=== PATIENT | male | born 1955 | race Caucasian/White ===

== ENCOUNTER → 2023-10-31 | Outpatient (REF) | payer OTHER, SELFPAY | LOC: DHSLP | PROVIDERS: ATTENDING PHYSICIAN Internal Medicine | DX: G47.33 Obstructive sleep apnea (adult) (pediatric) (principal) | CPT/HCPCS: 95800 ==

== ENCOUNTER 2023-11-25 19:58 | Inpatient (IN) | payer OTHER, SELFPAY ==
[2023-11-25] VITALS (10 sets, daily range): BP systolic 128–169; BP diastolic 71–97; BMI 32.9; BMI 31.6
--- NOTE | 2023-11-25 09:54 | ED.GENMED ---
History of Present Illness
General
Chief Complaint: Fever
Source: patient
Exam Limitations: none
Time Seen by Provider: 11/25/23 09:38
Nursing documentation reviewed up to this point in time: agreed with
Travel History
Have you had any contact with someone who has COVID-19?: No
Do you have any symptoms of coronavirus? Fever > 100 degrees, chills, cough, shortness of breath, sore throat, loss of taste or smell, muscle aches, or headache?: No
History of Present Illness
History of Present Illness:
68-year-old male presents emergency room complaining of right hip pain and fever 102.9. He complains of numbness and pain in his right upper and lower leg. He had a fever 102.9 last night.
Past History
Past History
ED Past Medical History: HTN and Hypercholesterolemia
ED Past Surgical History: Orthopedic (Disc fusion), Urological (TURP, lithotripsy) and Other (mohs, umbilical hernia repair, right cataract)
Social History
Tobacco: Non-smoker
Alcohol: None
Drug: None
Personal:
Living: with family
Review of Systems
Review of Systems
Allergies reviewed?: Yes
All Other Systems: Not applicable
Constitutional: Reports fever
EENT: Reports no symptoms
Respiratory: Reports no symptoms
Cardiac: Reports no symptoms
ABD/GI: Reports no symptoms
: Reports no symptoms
Musculoskeletal: Reports joint pain
Skin: Reports no symptoms
Neurological: Reports no symptoms
Endocrine: Reports no symptoms
Hematologic/Lymphatic: Reports no symptoms
Psychiatric: Reports no symptoms
Phy Exam
Physical Exam
Physical Exam:
Physical Exam
General: no apparent distress, not acutely ill
Neck: supple. no meningeal signs. normal posterior pharynx
Heart: s1/s2 regular rate and rhythm, no murmur. equal radial
pulses.
HEENT: Pupils equal round reactive to light, EOMI
Lungs: no acute respiratory distress. clear bilaterally
Abdomen: normal bowel sounds. not tender. no CVAT
Neuro: alert and oriented. no focal neurological deficits cranial nerves II through XII intact
Skin: no rash
Psychiatric: well kept. interactive and cooperative
Extremities: no edema. no calf tenderness. negative homans. good distal pulses
Course
Orders/Labs/Results
Orders:
Orders
11/25/23 09:52
Hip, Right 2-3 Views [CR Hip - RT w/wo Pel 2-3 Vw*] Urgent
Comment:
Reason For Exam: right hip pain
Include a pelvis x-ray?: Yes
11/25/23 09:53
IV Insert/Care/Rem.- Treatment PRN
11/25/23 10:14
COVID-19 Antigen Urgent
Source: Nasal Swab
Complete Blood Count/With Diff Urgent
Comprehensive Metabolic Panel Urgent
Influenza A+B Rapid Molecular Urgent
[facility] Source: Nasal Swab
Specimen Description:
11/25/23 10:48
Urinalysis Reflex To Culture Urgent
Date Specimen was Collected: 11/25/23
Time Specimen was Collected: 10:47
Urine Microscopic Reflex Cult Urgent
11/25/23 10:55
Lactic Acid Q4H
Comment: CANCEL 2nd LACTIC ACID IF 1st LACTIC ACID IS LESS THAN 2
Blood Culture Q30M
[facility] Source: Blood/Venous
Specimen Description:
11/25/23 11:06
Blood Culture Q30M
[facility] Source: Blood/Venous
Specimen Description:
11/25/23 12:21
US Abdomen Complete/Upper Urgent
Comment:
Reason For Exam: fever, transaminitis
11/25/23 16:08
GASTROINTESTINAL CONSULT Routine
Consulting Provider: Alice Corcoran
Was physician already notified: Yes
Reason for consult: Fever, transaminitis, gallstones, cholecystitis
11/25/23 16:59
CefTRIAXone [Rocephin] 2,000 mg IV NOW STA
MetroNIDAZOLE 500 MG/100 ML [Flagyl 500 mg] 100 ml IV NOW
Abnormal Lab Results
11/25/23 11/25/23
10:14 10:48
WBC 2.6 L 10^3/uL
(4.8-10.8)
RBC 4.50 L 10^6/uL
(4.70-6.10)
Hgb 12.7 L g/dL
(13.0-18.0)
Hct 35.9 L %
(39.0-52.0)
MCV 79.8 L fL
(80.0-94.0)
Absolute Lymphs (auto) 0.2 L 10^3/uL
(1.2-3.4)
Lymphocytes % 9.4 L %
(20.5-51.1)
Monocytes % 11.7 H %
(1.7-9.3)
Sodium 132 L mmol/L
(135-145)
BUN 21 H mg/dl
(9-20)
Glucose 129 H mg/dl
(70-99)
Total Bilirubin 2.0 H mg/dl
(0.2-1.3)
AST 421 H U/L
(17-59)
ALT 351 H U/L
(0-50)
Alkaline Phosphatase 207 H U/L
(38-126)
Ur Occult Blood Reflex Trace A
(Negative)
Urine Bilirubin 1+ A
(Negative)
Urine Urobilinogen 2+ A
(Neg - 1+)
Leukocyte Esterase Rfl Trace A
(Negative)
Urine Bacteria (Reflex) Few A
(Negative)
11/25/23 10:14
11/25/23 10:14
Vital Signs
Initial and Last Documented VS:
Initial Vital Signs
Temp Pulse Resp BP Pulse Ox
98.7 F 67 20 141/80 98
11/25/23 08:59 11/25/23 08:59 11/25/23 08:59 11/25/23 08:59 11/25/23 08:59
Last Documented Vital Signs
Temp Pulse Resp BP Pulse Ox
99.0 F 57 18 128/71 94
11/25/23 15:59 11/25/23 14:55 11/25/23 14:55 11/25/23 14:55 11/25/23 14:55
MDM/Problems Addressed
Differential Diagnosis Includes:
sepsis
MDM/Problems Addressed:
68 yo male with fever, transaminitis, gallstones.
Chronic conditions affecting care: HTN
Acute Exacerbation and/or Progression of Chronic Illness: HTN
*Radiology
Radiology exam reviewed: radiology read reviewed (hip xray nad, US gallstones)
*Pulse Oximetry
Patient hypoxic: no
*EKG
Interpreted by ED Provider?: NA
*Medical Van Driver Interpretation
Rate: Medical Van Driver- N/A
*Critical Care Note
Total Time (30-74mins, 75-104mins- exclusive of procedures): Not Applicable
Patient Management
Social determinants of health affecting care: Living situation
Discussion with other providers: Hospitalist
Escalation/DeEscalation of care consider admission/obs:
admit indicated
ED Attending Note
-
Portions of this chart may have been created with voice recognition software.� Occasional wrong word or��sound alike� substitutions may have occurred due to the inherent limitations of voice recognition software.
Discharge Plan
Departure
Patient Disposition: Admit
Date of Disposition: 11/25/23
Time of Disposition: 15:40
Admit to: Telemetry
Presentation/result/management discussed w/ accepting MD/DO: Hospitalist
Patient with high blood pressure during this ER visit?: Yes
Condition: Good
Discharge Problem:
Fever, Transaminitis, Gallstones
Prescriptions:
No Action
metformin 500 mg Tablet
1,000 mg PO BID
atorvastatin 20 mg Tablet
20 mg PO DAILY
hydralazine 25 mg Tablet
25 mg PO TID
amlodipine 10 mg Tablet
10 mg PO DAILY
gabapentin 100 mg Capsule
100 mg PO TID PRN (Reason: nerve pain)
losartan 100 mg Tablet
100 mg PO DAILY
naproxen 500 mg Tablet
500 mg PO BID PRN (Reason: pain)
eplerenone 50 mg Tablet
50 mg PO BID
tadalafil [Cialis] 10 mg Tablet
10 mg PO DAILY PRN (Reason: ED)
Referrals:
Khushi Christensen MD [Family Provider] -
Interventions
Interventions:
*Risk Screen - Suicide Last Done: 11/25/23 08:59
*General Assessment Last Done: 11/25/23 08:59
*Neglect/Abuse Screening Last Done: 11/25/23 08:59
ED- Neurological Assessment Last Done: 11/25/23 10:10
ED-Skin Assessment Last Done: 11/25/23 10:10
Discharge Date and Time
Print Language: INDONESIAN
[2023-11-25 10:27] LABS: % Basophils 0.8 % (0-2); % Immature Granulocytes 0.4 % (0-0.5); Mean Platelet Volume 9.7 fL (7.4-10.4); Nucleated Red Blood Cells % 0 % (-)
[2023-11-25 10:29] LABS: % Eosinophils 3.5 % (0-6); % Lymphocytes 9.4 % (20.5-51.1); % Monocytes 11.7 % (1.7-9.3); % Neutrophils 74.2 % (42.2-75.2); Absolute Eosinophils 0.1 10^3/uL (0-0.7); Absolute Lymphocytes 0.2 10^3/uL (1.2-3.4); Absolute Monocytes 0.3 10^3/uL (0.1-0.6); Absolute Neutrophils 1.9 10^3/uL (1.4-6.5); Hematocrit 35.9 % (39.0-52.0); Hemoglobin 12.7 g/dL (13.0-18.0); Mean Corp Hgb Conc. 35.4 g/dL (33.0-37.0); Mean Corpuscular Hgb 28.2 pg (27.0-31.0); Mean Corpuscular Volume 79.8 fL (80.0-94.0); Platelet Count 243 10^3/uL (130-400); Red Cell Dist. Width 13.7 % (11.5-14.5); White Blood Cell Count 2.6 10^3/uL (4.8-10.8)
[2023-11-25 10:35] LABS: ALT (SGPT) 351 U/L (0-50); AST (SGOT) 421 U/L (17-59); Albumin 3.8 g/dl (3.5-5.0); Alkaline Phosphatase 207 U/L (38-126); Blood Urea Nitrogen 21 mg/dl (9-20); Calcium 9.3 mg/dl (8.4-10.2); Carbon Dioxide 25 mmol/L (22-30); Chloride 102 mmol/L (98-107); Estimated Creatinine Clearance 79 ml/min; Glucose 129 mg/dl (70-99); Potassium 3.8 mmol/L (3.5-5.1); Sodium 132 mmol/L (135-145); Total Protein 6.5 g/dl (6.3-8.2); eGFR > 60.00
[2023-11-25 10:36] LABS: COVID-19 Antigen Negative (Negative)
[2023-11-25 11:40] LABS: Urine Albumin Trace (Neg - Trace); Urine Bilirubin 1+ (Negative); Urine Character Clear (Clear); Urine Color Yellow; Urine Glucose Negative (Negative); Urine Ketone Negative (Negative); Urine Leukocyte Trace (Negative); Urine Nitrite Negative (Negative); Urine Occult Blood Trace (Negative); Urine Urobilinogen 2+ (Neg - 1+)
[2023-11-25 11:52] LABS: Urine Bacteria Few (Negative); Urine Red Blood Cell 0-2 /HPF (0-2); Urine White Cell 0-2 /HPF (0-5)
[2023-11-25] MEDS: ROCEPHIN 2000 MG IV (17:16)
[2023-11-25] MEDS: FLAGYL 500 MG 100 IV ×2 (17:30→23:16)
--- NOTE | 2023-11-25 19:23 | EDRN ---
Report received, patient asking about when he is being admitted, was told they were working on orders, checked back into it and a message was sent back to hospitalist to check on this, informed patient and apologized for the delay, as im telling
patient, hospitalist comes in to admit patient.
--- NOTE | 2023-11-25 19:48 | EDRN ---
Patient provided with ice chips and warm blanket, aware we are waiting on orders to go in for his admission, no complaints at this time, went home for the evening.
--- NOTE | 2023-11-25 19:50 | HPS.HSE ---
Family Physician
-
Family Physician: Khushi Christensen
Chief Complaint
-
Fever
History of Present Illness
68 y/o male with past medical history of hypertension, hyperlipidemia, pre-DM, left ventricular hypertrophy, BPH, glaucoma, radiculopathy, spinal stenosis, squamous cell skin carcinoma, actinic keratoses, iron deficiency anemia, nephrolithiasis and
obstructive sleep apnea presented after experiencing fever of 102.9 F last night at home. Patient denied any abdominal symptoms, nausea or vomiting or diarrhea. He reports right leg pain and right hip pain, reported that he has had spinal stenosis
for years, reports that it is nerve pain for which he takes Gabapentin.
Medical History
Past Medical History
Past Medical History: Reports Other (As per HPI above)
Past Surgical History: Reports Orthopedic (Disc fusion) and Urological (TURP, lithotripsy)
Additional Past Surgical History:
mohs, umbilical hernia repair, right cataract
Social History
Tobacco: Non-smoker
Alcohol: Occasional
Drug: None
Family History
Family History: Cancer and Hypertension
Allergies / Home Medications
Allergies reflects when Allergies were last updated in Triage.
Home Medications with original date entered in Triage
Allergy/Medication List:
Allergies
Allergy/AdvReac Type Severity Reaction Status Date / Time
Penicillins Allergy Unknown Verified 11/25/23 10:07
Home Medications
amlodipine 10 mg tablet 10 mg PO DAILY 11/25/23
atorvastatin 20 mg tablet 20 mg PO DAILY 11/25/23
eplerenone 50 mg tablet 50 mg PO BID 11/25/23
gabapentin 100 mg capsule 100 mg PO TID PRN nerve pain 11/25/23
hydralazine 25 mg tablet 25 mg PO TID 11/25/23
losartan 100 mg tablet 100 mg PO DAILY 11/25/23
metformin 500 mg tablet 1,000 mg PO BID 11/25/23
naproxen 500 mg tablet 500 mg PO BID PRN pain 11/25/23
tadalafil 10 mg tablet (Cialis) 10 mg PO DAILY PRN ED 11/25/23
Review of Systems
-
A 12 point ROS was completed and negative except as noted: Yes
Physical Exam
Vital Signs
Vital Signs
Temp Pulse Resp BP Pulse Ox
98.9 F 62 17 148/76 95
11/25/23 17:13 11/25/23 18:00 11/25/23 18:00 11/25/23 18:00 11/25/23 18:00
Physical Exam
General: No Apparent Distress
HEENT: NormoCephalic and Moist mucous membranes
Respiratory: Clear
Cardiac: S1/S2 and Regular Rhythm
GI: Soft, Non Tender and Normal Bowel Sounds
Musculoskeletal: No Cyanosis and No Edema
Skin: Warm and Dry
Neuro: Awake, Alert, AO x 3, No Motor Deficits and Nonfocal/grossly intact
Psych: Calm and Intact Judgment/Insight
Laboratory Results
-
11/25/23 10:14
11/25/23 10:14
Laboratory Results
Lactic Acid Cancelled 11/25/23 15:00
Total Bilirubin 2.0 mg/dl (0.2-1.3) H 11/25/23 10:14
AST 421 U/L (17-59) H 11/25/23 10:14
ALT 351 U/L (0-50) H 11/25/23 10:14
Alkaline Phosphatase 207 U/L (38-126) H 11/25/23 10:14
Impression/Plan
-
Assessment/Plan
Fever
Suspected Acute Cholecystitis
Gallbladder Wall Thickening
Large Gallstone
Transaminitis - elevated AST and ALT
Elevated Total Bilirubin
-Patient had fever at home, but no abdominal pain
-Continue antibiotics with Rocephin and Flagyl
-Follow blood cultures
-Abdominal ultrasound results noted
-NPO except meds and sips of clears/ice chips
-Gastroenterology consulted, recommendations appreciated
Right Hip Pain and Right Lower Extremity Pain
Radiculopathy
Spinal stenosis
-RLE appears neurovascularly intact
-Continue home Gabapentin
-Patient is supposed to get a MRI of his spine outpatient soon
Hypertension
History of Left Ventricular Hypertrophy
-Continue home Amlodipine
-Continue home Eplerenone
Hyperlipidemia
-Continue home Atorvastatin
Pre-Diabetes Mellitus
-Continue home Metformin -- however watch renal function and discontinue if worsening renal function
Benign Prostatic Hyperplasia
-Monitor for any signs or symptoms
History of glaucoma
History of squamous cell skin carcinoma, actinic keratoses
History of Iron deficiency anemia
History of nephrolithiasis
History of obstructive sleep apnea
DVT Prophylaxis: Lovenox
Code Status: Full Code
[2023-11-25] MEDS: GLUCOPHAGE 1000 MG PO (21:16)
[2023-11-25] MEDS: LOVENOX 40 MG SC (21:17)
[2023-11-25] MEDS: INSPRA 50 MG PO (21:17)
[2023-11-25] MEDS: NSS 1000 IV (21:17)
[2023-11-25] MEDS: APRESOLINE 25 MG PO (21:18)
[2023-11-25] MEDS: NEURONTIN 100 MG PO (21:24)
--- NOTE | 2023-11-25 21:30 | PTCARENOTE ---
Pt transferred from ED. Pt AAOX3, able to make needs known, VSS. Pt oriented to unit, call walker within reach. Will continue with current plan.
[2023-11-25 22:32] LABS: Lipase 200 U/L (23-300)
[2023-11-25] MEDS: MELATONIN 5 MG PO (23:40)
[2023-11-26 03:20] VITALS: BP 119/83
[2023-11-26 07:00] VITALS: BP 167/84
[2023-11-26 07:05] LABS: ALT (SGPT) 353 U/L (0-50); AST (SGOT) 307 U/L (17-59); Albumin 3.6 g/dl (3.5-5.0); Alkaline Phosphatase 279 U/L (38-126); Blood Urea Nitrogen 17 mg/dl (9-20); Calcium 9.3 mg/dl (8.4-10.2); Carbon Dioxide 22 mmol/L (22-30); Chloride 102 mmol/L (98-107); Estimated Creatinine Clearance 97 ml/min; Glucose 93 mg/dl (70-99); Magnesium 1.9 mg/dl (1.6-2.3); Potassium 4.1 mmol/L (3.5-5.1); Sodium 133 mmol/L (135-145); Total Bilirubin 2.5 mg/dl (0.2-1.3); Total Protein 6.2 g/dl (6.3-8.2); eGFR > 60.00
[2023-11-26 07:14] LABS: % Basophils 0.6 % (0-2); % Eosinophils 4.1 % (0-6); % Immature Granulocytes 0.2 % (0-0.5); % Lymphocytes 7.3 % (20.5-51.1); % Monocytes 9.6 % (1.7-9.3); % Neutrophils 78.2 % (42.2-75.2); Absolute Eosinophils 0.2 10^3/uL (0-0.7); Absolute Lymphocytes 0.4 10^3/uL (1.2-3.4); Absolute Monocytes 0.5 10^3/uL (0.1-0.6); Absolute Neutrophils 3.8 10^3/uL (1.4-6.5); Hematocrit 34.3 % (39.0-52.0); Hemoglobin 12.1 g/dL (13.0-18.0); Mean Corp Hgb Conc. 35.3 g/dL (33.0-37.0); Mean Corpuscular Hgb 28.5 pg (27.0-31.0); Mean Corpuscular Volume 80.9 fL (80.0-94.0); Mean Platelet Volume 10.8 fL (7.4-10.4); Nucleated Red Blood Cells % 0 % (-); Platelet Count 227 10^3/uL (130-400); Red Blood Cell Count 4.24 10^6/uL (4.70-6.10); Red Cell Dist. Width 13.8 % (11.5-14.5); White Blood Cell Count 4.9 10^3/uL (4.8-10.8)
[2023-11-26] MEDS: INSPRA 50 MG PO ×2 (08:25→19:59)
[2023-11-26] MEDS: LIPITOR 20 MG PO (08:25)
[2023-11-26] MEDS: COZAAR 100 MG PO (08:26)
[2023-11-26] MEDS: FLAGYL 500 MG 100 IV ×3 (08:26→23:00)
[2023-11-26] MEDS: APRESOLINE 25 MG PO ×3 (08:26→22:59)
[2023-11-26] MEDS: NORVASC 10 MG PO (08:26)
[2023-11-26] MEDS: NEURONTIN 100 MG PO ×3 (08:31→23:00)
[2023-11-26] MEDS: NAPROSYN 500 MG PO (09:38)
[2023-11-26] MEDS: GLUCOPHAGE PO (09:45)
--- NOTE | 2023-11-26 10:46 | CM ---
IA completed.
[facility] with 5-6 steps to enter.
Patient admits to some difficulty with staeps due to hip pain.
Patient has been getting outpatient therapy for hip pain.
Patient drives and works.
Patient independent prior ot admission without assistive devices.
PCP: Dr Christensen (regina VAUGHAN)
Pharmacy:[facility]
Plan: home no needs anticipated.
[2023-11-26 11:00] VITALS: BP 122/79
--- NOTE | 2023-11-26 11:02 | CON.GS ---
Consultation
-
Date/Time Consultation Requested: 11/26/23 0944
Requesting Provider: Katty
Performing Provider: Katey Goode
Reason for Consultation: Gallstones, cholecystitis -- needs lap leonardo
Medical History
-
Chief Complaint: fever
History of Present Illness:
Mr Arvizu is a 68 yo pre-diabetic male with a history of CYRUS, nephrolithiasis, and TURP who presented through the ER yesterday morning as he had a fever the prior evening of 102.9 with rigors and chills. He denies associated symptoms including SOB,
abdominal pain, nausea or vomiting, diarrhea or voiding changes. He has been afebrile since presentation. Abdominal exam is benign with no tenderness, rebound, guarding or distention. He does note some mild abdominal soreness recently to the mid
right abdomen after doing core exercises with his PT but is currently non-tender on exam.
Past Medical History
Past Medical History: Cancer (skin on scalp--squamous cell), NIDDM (prediabetic on metformin) and Other (CYRUS, Nephrolithiasis, bph, iron deficiency anemia, glaucoma)
Past Surgical History: Hernia Repair (umbilical), Orthopedic (cervical disc fusion: residual right hand weakness), Urological (TURP 2015, Lithotripsy, hyrocele) and Other (Mohs, colonoscopy 2021- polyps, cataract surgery)
Social History
Tobacco: Non-Smoker
Alcohol: Occasional
Family History
Family History: Reviewed & Not Pertinent
Allergies / Home Medications
Allergy/AdvReac Type Severity Reaction Status Date / Time
Penicillins Allergy Unknown Verified 11/25/23 10:07
�Medication �Instructions �Recorded �Confirmed �Type
amlodipine 10 mg tablet 10 mg PO DAILY 11/25/23 11/25/23 History
atorvastatin 20 mg tablet 20 mg PO DAILY 11/25/23 11/25/23 History
eplerenone 50 mg tablet 50 mg PO BID 11/25/23 11/25/23 History
gabapentin 100 mg capsule 100 mg PO TID PRN nerve pain 11/25/23 11/25/23 History
hydralazine 25 mg tablet 25 mg PO TID 11/25/23 11/25/23 History
losartan 100 mg tablet 100 mg PO DAILY 11/25/23 11/25/23 History
metformin 500 mg tablet 1,000 mg PO BID 11/25/23 11/25/23 History
naproxen 500 mg tablet 500 mg PO BID PRN pain 11/25/23 11/25/23 History
tadalafil 10 mg tablet (Cialis) 10 mg PO DAILY PRN ED 11/25/23 11/25/23 History
Review of Systems
-
History Source: Patient
All other systems: Negative unless noted
A 10 point review of systems was completed, and was negative except as per HPI.
Physical Exam
Vital Signs
Temp Pulse Resp BP Pulse Ox
98.3 F 73 18 167/84 94
11/26/23 07:00 11/26/23 07:00 11/26/23 07:00 11/26/23 07:00 11/26/23 08:00
11/25/23 11/26/23 11/27/23
06:59 06:59 06:59
Actual Weight 94.12 kg
Body Mass Index (BMI) 31.6
Lab Results
11/26/23 05:34
11/26/23 05:34
WBC 4.9 10^3/uL (4.8-10.8) 11/26/23 05:34
Hgb 12.1 g/dL (13.0-18.0) L 11/26/23 05:34
Hct 34.3 % (39.0-52.0) L 11/26/23 05:34
Plt Count 227 10^3/uL (130-400) 11/26/23 05:34
Abs Immat Gran (auto) 0.0 10^3/uL (0-0.05) 11/26/23 05:34
Neutrophils % 78.2 % (42.2-75.2) H 11/26/23 05:34
Physical Exam
General: Well Developed, Well Nourished and No Apparent Distress
HEENT: Moist Mucous Membranes
Respiratory: Non Labored Respirations
GI: Soft, Non Tender and Non Distended
Skin: Warm and Dry; Negative Jaundice
Neuro: Awake, Alert and AO x 3
Psych: Calm
Data Reviewed
-
Ultrasound: Image Personally Visualized and interpreted, Report Reviewed by me, Discussed with Physician and Discussed with Patient
Labs: Labs Reviewed by me, Discussed with Physician and Discussed with Patient
Old Records: Reviewed
Assessment / Plan
-
68 yo pre-diabetic male presenting with fever of 102.9 at home with rigors/chills without other associated symptoms. Infectious work up with noted large gallstone and ?cholecystitis although he has no associated abdominal pain. LFT's elevated and
rising. Lipase WNL. Mild leukopenia on admission, now normalized. UA with +bili. Flu neg. Blood cx with NGTD. No further fevers since presentation but has been on abx with rocephin/flagyl. GI following with us as well with hepatitis panels pending.
MRCP pending as well as this may represent a cholangitis picture.
--NPO for testing
--Further surgical recommendations pending MRCP findings. Tentatively plan lap leonardo tomorrow if no choledocholithiasis present. If there are stones in the duct, would likely need ERCP prior to OR.
--- NOTE | 2023-11-26 11:20 | CON.GI ---
Consultation
-
Date/Time Consultation Requested: 11/26/2023
Date/Time Consultation Performed: 11/26/2023
Requesting Provider: Dr. Toledo
Performing Provider: Dr. Corcoran
Reason for Consultation: Elevated LFTs
Medical History
Chief Complaint / HPI
Chief Complaint: Fever/chills
History of Present Illness:
68-year-old male with history of hypertension, high cholesterol, prediabetes presenting with complaints of fevers and chills starting Monday night, out of the blue. He has been having right hip pain for 10 days and previous history of spinal
stenosis with nerve pains. His fever was up to 102.9 with chills and he came to the emergency room. In the ER, he was noted to have elevated LFTs including total bilirubin of 2.0, AST of 421, ALT of 351 and alkaline phosphatase of 207. Abdominal
ultrasound showed 2.2 cm gallstone with mild wall thickening, CBD was not visualized.
Patient denies any abdominal pain and never had episodes of abdominal pain in the last several months. No nausea or vomiting. No heartburn except occasionally for which she takes Tums as needed. No trouble swallowing. Bowel pattern is formed
stool almost on a daily basis. No pushing or straining. Takes Metamucil to regulate bowels. No blood in the stool or black stool. He did lose about 10 pounds in the last 2 months, he was started on metformin about a month ago. Colonoscopy in
[address] Handy, 2 small tubular adenomas removed from the ascending colon and transverse colon, colonoscopy in 2017, ascending colon tubular adenoma removed. No family history of colon cancer or polyps.
Reviewing labs through PCPs office in August 2023, AST of 26, ALT of 25, bilirubin of 0.4 and alkaline phosphatase of 94.
Takes naproxen for hip pain. No history of jaundice, hepatitis, herbal supplements or previous
Elevated LFTs.
Past Medical History
Past Medical History: HTN, Hypercholesterolemia and Other (Prediabetes)
Past Surgical History: Appendectomy and Other (TURP, hydrocele repair, vasectomy, C5-7 fusion)
Social History
Tobacco: Non-Smoker
Alcohol: Occasional
Family History
Family History: Reviewed & Not Pertinent
Allergies / Home Medications
Allergy/AdvReac Type Severity Reaction Status Date / Time
Penicillins Allergy Unknown Verified 11/25/23 10:07
�Medication �Instructions �Recorded
amlodipine 10 mg tablet 10 mg PO DAILY 11/25/23
atorvastatin 20 mg tablet 20 mg PO DAILY 11/25/23
eplerenone 50 mg tablet 50 mg PO BID 11/25/23
gabapentin 100 mg capsule 100 mg PO TID PRN nerve pain 11/25/23
hydralazine 25 mg tablet 25 mg PO TID 11/25/23
losartan 100 mg tablet 100 mg PO DAILY 11/25/23
metformin 500 mg tablet 1,000 mg PO BID 11/25/23
naproxen 500 mg tablet 500 mg PO BID PRN pain 11/25/23
tadalafil 10 mg tablet (Cialis) 10 mg PO DAILY PRN ED 11/25/23
Review of Systems
-
Musculoskeletal: Reports Other (Right hip pain)
Vital Signs
Temp Pulse Resp BP Pulse Ox
98.3 F 73 18 167/84 94
11/26/23 07:00 11/26/23 07:00 11/26/23 07:00 11/26/23 07:00 11/26/23 08:00
Physical Exam
Exam
General: Well Developed and Well Nourished
HEENT: Normocephalic
Respiratory: Clear
Cardiac: S1/S2 and Regular Rhythm
GI: Soft, Non Tender, Non Distended and Normal Bowel Sounds
Neuro: AO x 3
Results
WBC 4.9 10^3/uL (4.8-10.8) 11/26/23 05:34
Hgb 12.1 g/dL (13.0-18.0) L 11/26/23 05:34
Hct 34.3 % (39.0-52.0) L 11/26/23 05:34
MCV 80.9 fL (80.0-94.0) 11/26/23 05:34
Plt Count 227 10^3/uL (130-400) 11/26/23 05:34
Absolute Neuts (auto) 3.8 10^3/uL (1.4-6.5) 11/26/23 05:34
Sodium 133 mmol/L (135-145) L 11/26/23 05:34
Potassium 4.1 mmol/L (3.5-5.1) 11/26/23 05:34
Chloride 102 mmol/L (98-107) 11/26/23 05:34
Carbon Dioxide 22 mmol/L (22-30) 11/26/23 05:34
BUN 17 mg/dl (9-20) 11/26/23 05:34
Creatinine 0.8 mg/dL (0.7-1.3) 11/26/23 05:34
Calcium 9.3 mg/dl (8.4-10.2) 11/26/23 05:34
Total Bilirubin 2.5 mg/dl (0.2-1.3) H 11/26/23 05:34
AST 307 U/L (17-59) H 11/26/23 05:34
ALT 353 U/L (0-50) H 11/26/23 05:34
Alkaline Phosphatase 279 U/L (38-126) H 11/26/23 05:34
Lipase 200 U/L (23-300) 11/25/23 21:03
Diagnostic Image Results:
Prior GI Procedures:
EGD:
Colonoscopy: 2021 colonoscopy with 2 small tubular adenomas removed, repeat suggested in 5 years
Assessment / Plan
-
68-year-old male with history of hypertension, high cholesterol, prediabetes presenting with complaints of fevers and chills Aleksander night, right hip pain in the last 10 days, in the ER noted to have significant elevation in LFTs, ultrasound showing
large gallstone and mild wall thickening, common duct could not be visualized. No abdominal pain.
-Elevated LFTs,? Cholestatic pattern
No abdominal pain, fevers and chills resolved
Ultrasound showing large gallstone, CBD not visualized
Will check direct bilirubin
Will check MRCP to rule out choledocholithiasis.
Patient currently on ceftriaxone for antibiotic coverage.
Surgical evaluation pending
Will follow-up on the MRCP
Will also check hepatitis B/C serologies. No recent new medication or herbal medication.
-Hemoglobin trended down slightly, will monitor
Discussed with patient's PCP .
-
-
Thank you for consultation and allowing me to participate in the patient's care. Please call the [facility] physician during the after hours with any questions or concerns.
[2023-11-26 11:42] LABS: Direct Bilirubin 1.6 mg/dl (0.0-0.4)
[2023-11-26] MEDS: ROCEPHIN 2000 MG IV (13:05)
[2023-11-26] MEDS: STERILE WATER FOR INJECTION 20 ML IV (13:05)
[2023-11-26] MEDS: PROTONIX IV 40 MG IV (14:57)
[2023-11-26] MEDS: NSS (PRESERVATIVE FREE) 10 ML IV (14:57)
--- NOTE | 2023-11-26 15:17 | W.PN.HOSP.TC ---
Today's Communication/Plan
-
Low residue diet tonight but NPO after midnight
EGD for tomorrow AM
Assessment / Plan
Assessment / Plan
Physical Exam
General: No Apparent Distress
HEENT: Normocephalic and Moist mucous membranes
Respiratory: Clear to Auscultation Bilaterally
Cardiac: S1/S2 and Regular Rhythm
GI: Soft, Non Tender and Normal Bowel Sounds
Musculoskeletal: No Cyanosis and No Edema
Skin: Warm and Dry
Neuro: Awake, Alert, AAO x 3, No Motor Deficits and Nonfocal/grossly intact
Psych: Calm and Intact Judgment/Insight

MRCP Results, as per radiologist's report:
'IMPRESSION:
1. Moderate edema and inflammation around the 1st and 2nd portions the duodenum with associated mild to moderate duodenal wall thickening. Diagnostic possibilities are (1) acute peptic ulcer disease or (2) other causes of inflammatory or
infectious duodenitis.
2. No evidence for choledocholithiasis or biliary obstruction.
3. 1.6 cm gallstone.
4. Mild hepatosplenomegaly.'

Assessment/Plan
Fever
Suspected Acute Cholecystitis
Gallbladder Wall Thickening
Large Gallstone
Transaminitis - elevated AST and ALT
Elevated Total Bilirubin
Duodenal edema and inflammation with duodenal wall thickening
Hepatosplenomegaly
-Patient had fever at home, but no abdominal pain
-Continue antibiotics with Rocephin and Flagyl
-Follow blood cultures
-Abdominal ultrasound results noted
-Okay for low residue diet this evening, but NPO after midnight for EGD tomorrow based on MRCP findings above
-Gastroenterology consulted, recommendations appreciated
-Surgery consulted, recommendations appreciated
Right Hip Pain and Right Lower Extremity Pain
Radiculopathy
Spinal stenosis
-RLE appears neurovascularly intact
-Continue home Gabapentin
-Patient is supposed to get a MRI of his spine outpatient soon
Hypertension
History of Left Ventricular Hypertrophy
-Continue home Amlodipine
-Continue home Eplerenone
Hyperlipidemia
-Continue home Atorvastatin
Pre-Diabetes Mellitus
-Continue home Metformin -- however watch renal function and discontinue if worsening renal function
Benign Prostatic Hyperplasia
-Monitor for any signs or symptoms
History of glaucoma
History of squamous cell skin carcinoma, actinic keratoses
History of Iron deficiency anemia
History of nephrolithiasis
History of obstructive sleep apnea
DVT Prophylaxis: Lovenox
Code Status: Full Code
Anticipated Discharge: 24 - 48 hours
Subjective/Interval History
-
Date of Service: November 26, 2023
Patient was seen and examined. No fever observed overnight. He denied any new significant symptoms or complaints.
Objective Data
-
Labs:
Laboratory Results
11/26/23
05:34
WBC 4.9
Hgb 12.1 L
Hct 34.3 L
Plt Count 227
Sodium 133 L
Potassium 4.1
Chloride 102
Carbon Dioxide 22
BUN 17
Creatinine 0.8
Glucose 93
Calcium 9.3
Total Bilirubin 2.5 H
AST 307 H
ALT 353 H
Alkaline Phosphatase 279 H
Vital Signs:
Vital Signs
Temp Pulse Resp BP Pulse Ox
98.0 F 78 18 122/79 94
11/26/23 11:00 11/26/23 11:00 11/26/23 11:00 11/26/23 11:00 11/26/23 11:00
I&O
11/25/23 11/26/23 11/27/23
06:59 06:59 06:59
Intake Total 750 / 750
Output Total 350 / 350
Balance -350 / -350 750 / 750
[2023-11-26 15:28] VITALS: BP 168/88
[2023-11-26] MEDS: NSS IV (16:10)
[2023-11-26] MEDS: LOVENOX 40 MG SC (17:59)
[2023-11-26 19:15] VITALS: BP 153/78
[2023-11-26] MEDS: GLUCOPHAGE 1000 MG PO (20:04)
[2023-11-26] MEDS: MELATONIN 5 MG PO (23:00)
[2023-11-26 23:15] VITALS: BP 149/81
[2023-11-27] VITALS (12 sets, daily range): BP systolic 120–143; BP diastolic 55–80; PULSE 72
[2023-11-27 07:22] LABS: % Basophils 0.8 % (0-2); % Eosinophils 5.3 % (0-6); % Immature Granulocytes 0.4 % (0-0.5); % Lymphocytes 13.9 % (20.5-51.1); % Monocytes 14.3 % (1.7-9.3); % Neutrophils 65.3 % (42.2-75.2); Absolute Eosinophils 0.3 10^3/uL (0-0.7); Absolute Lymphocytes 0.7 10^3/uL (1.2-3.4); Absolute Monocytes 0.7 10^3/uL (0.1-0.6); Absolute Neutrophils 3.1 10^3/uL (1.4-6.5); Hematocrit 34.2 % (39.0-52.0); Hemoglobin 12.1 g/dL (13.0-18.0); Mean Corp Hgb Conc. 35.4 g/dL (33.0-37.0); Mean Corpuscular Hgb 28.2 pg (27.0-31.0); Mean Corpuscular Volume 79.7 fL (80.0-94.0); Mean Platelet Volume 10.2 fL (7.4-10.4); Nucleated Red Blood Cells % 0 % (-); Platelet Count 229 10^3/uL (130-400); Red Blood Cell Count 4.29 10^6/uL (4.70-6.10); Red Cell Dist. Width 13.9 % (11.5-14.5); White Blood Cell Count 4.8 10^3/uL (4.8-10.8)
[2023-11-27] MEDS: FLAGYL 500 MG 100 IV ×2 (08:10→23:41)
[2023-11-27] MEDS: LIPITOR 20 MG PO (08:10)
[2023-11-27] MEDS: NORVASC 10 MG PO (08:10)
[2023-11-27] MEDS: GLUCOPHAGE 1000 MG PO ×2 (08:10→20:17)
[2023-11-27] MEDS: COZAAR 100 MG PO (08:10)
[2023-11-27] MEDS: PROTONIX IV 40 MG IV (08:11)
[2023-11-27] MEDS: APRESOLINE 25 MG PO ×3 (08:11→21:14)
[2023-11-27] MEDS: INSPRA 50 MG PO ×2 (08:11→21:25)
[2023-11-27] MEDS: NEURONTIN 100 MG PO (08:11)
[2023-11-27] MEDS: NSS (PRESERVATIVE FREE) 10 ML IV (08:11)
[2023-11-27 08:13] LABS: ALT (SGPT) 308 U/L (0-50); AST (SGOT) 190 U/L (17-59); Albumin 3.5 g/dl (3.5-5.0); Alkaline Phosphatase 340 U/L (38-126); Blood Urea Nitrogen 23 mg/dl (9-20); Calcium 9.4 mg/dl (8.4-10.2); Carbon Dioxide 23 mmol/L (22-30); Chloride 104 mmol/L (98-107); Estimated Creatinine Clearance 78 ml/min; Glucose 108 mg/dl (70-99); Potassium 4.1 mmol/L (3.5-5.1); Sodium 133 mmol/L (135-145); Total Bilirubin 1.8 mg/dl (0.2-1.3); Total Protein 6.1 g/dl (6.3-8.2); eGFR > 60.00
--- NOTE | 2023-11-27 09:10 | W.PN.GS2 ---
Addendum entered and electronically signed by Hans Cullen MD 11/27/23 10:45:
I saw and examined the patient independently.
The [facility] Nurse's note was reviewed and I agree with the note, assessment and plan except where noted below.
Comment: 68-year-old male with history of an appendectomy and umbilical hernia repair with mesh who presents with fever to 102 found to have elevated LFTs as well as a very large stone in the neck of the gallbladder. An MRCP without overt stigmata
of cholecystitis and patient is not particular tender to palpation on exam. There is also note of edema and inflammation around the second portions of the duodenum for which gastroenterology is planning to do an endoscopy today. Had a lengthy
discussion with the patient regarding's overall findings. My main concern at this point is still the gallbladder despite no pain given his very large stone fever and LFT derangement it remains the most likely source.
Will plan for a laparoscopic cholecystectomy and cholangiogram with possible intraoperative EGD today. Will coordinate with gastroenterology.
N.p.o., IV fluids continue IV antibiotics.
Risks/Benefits/Alternatives, expected postoperative course and possible complications (bleeding, infection, injury to surrounding structures, acute/chronic pain) discussed at length. Patient wishes to proceed with surgery. All questions answered.
Consent obtained.
I spent roughly 75 minutes in total for the care of this patient today including direct patient care and counseling, reviewing labs, imaging, coordination of care, as well as documentation.
Original Note:
Today's Communication / Plan
-
Lap leonardo
Assessment / Plan
-
68-year-old male with PMH of HTN, HLD, prediabetes, spinal stenosis who presents after noting a fever at home of 102.9. LFT's have been elevated but trending slightly down today. Infectious work up with findings of large gallstone and duodenitis.
AFVSS
Labs stable
� Atypical presentation for acute cholecystitis as he has no abdominal pain; although lab work concerning for biliary process
� Appreciate GI, EGD planned today given abnormal duodenal findings
� Continue empiric antibiotics with ceftriaxone and Flagyl
� NPO today for procedures
- Will plan Lap leonardo tentatively later today after EGD
Subjective Data
-
Date of Service: November 27, 2023
Patient seen and examined at bedside with Dr. Cullen. Denies pain, nausea or vomiting. No further fevers.
Objective Data
-
Intake and Output
11/26/23 11/27/23 11/28/23
06:59 06:59 06:59
Intake Total 750 / 750 580 / 580
Output Total 350 / 350
Balance -350 / -350 750 / 750 580 / 580
Intake:
Oral fluids 480 / 480
IV fluids (Total) 750 / 750 100 / 100
Output:
Urine, Voided 350 / 350
Other:
Number of approximated MODERATE 1
amounts of urine
Vital Signs
Temp Pulse Resp BP Pulse Ox
98.6 F 59 15 137/78 98
11/27/23 08:22 11/27/23 08:22 11/27/23 08:22 11/27/23 08:22 11/27/23 08:22
Lab Results
11/27/23 06:39
11/27/23 06:39
Calcium 9.4 mg/dl (8.4-10.2) 11/27/23 06:39
Magnesium 1.9 mg/dl (1.6-2.3) 11/26/23 05:34
Total Bilirubin 1.8 mg/dl (0.2-1.3) H 11/27/23 06:39
Direct Bilirubin 1.6 mg/dl (0.0-0.4) H 11/26/23 05:34
AST 190 U/L (17-59) H 11/27/23 06:39
ALT 308 U/L (0-50) H 11/27/23 06:39
Alkaline Phosphatase 340 U/L (38-126) H 11/27/23 06:39
Total Protein 6.1 g/dl (6.3-8.2) L 11/27/23 06:39
Albumin 3.5 g/dl (3.5-5.0) 11/27/23 06:39
Physical Exam
-
NAD
ABD soft, nd, nt
--- NOTE | 2023-11-27 10:02 | CM ---
Chart reviewed and plan is to home when stable.
Plan; Home when stable.
[2023-11-27] MEDS: NAPROSYN 500 MG PO (10:55)
[2023-11-27] MEDS: ROCEPHIN 2000 MG IV (11:51)
[2023-11-27] MEDS: STERILE WATER FOR INJECTION 20 ML IV (11:51)
--- NOTE | 2023-11-27 13:06 | W.PN.HOSP.TC ---
Today's Communication/Plan
-
see A/P
Assessment / Plan
Assessment / Plan
MRCP Results, as per radiologist's report:
1. Moderate edema and inflammation around the 1st and 2nd portions the duodenum with associated mild to moderate duodenal wall thickening. Diagnostic possibilities are (1) acute peptic ulcer disease or (2) other causes of inflammatory or
infectious duodenitis.
2. No evidence for choledocholithiasis or biliary obstruction.
3. 1.6 cm gallstone.
4. Mild hepatosplenomegaly.
A/P:
# Fever [employer]STITUTE [employer]IVER likely due to Acute Cholecystitis vs duodenitis.
# Gallbladder Wall Thickening with large Gallstone
# Transaminitis - elevated AST/ ALT and elevated Total Bilirubin
# Duodenal edema and inflammation with duodenal wall thickening
# Hepatosplenomegaly
Patient had fever at home, but no abdominal pain
Blood Cx negative
Continue empiric antibiotics Rocephin and Flagyl
MRCP noted Moderate edema and inflammation around the 1st and 2nd portions the duodenum with associated mild to moderate duodenal wall thickening.
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
Follow path report.
s/p cholangiogram and laparoscopic cholecystectomy 11/26 immediately after EGD
Follow LFT
Cleared for low residue diet per GI
# Mild hyponatremia
# Right Hip Pain and Right Lower Extremity Pain/Radiculopathy
# Spinal stenosis
RLE appears neurovascularly intact
Continue home Gabapentin
Patient is supposed to get a MRI of his spine outpatient soon
# Hypertension
# History of Left Ventricular Hypertrophy
Continue home Amlodipine/Eplerenone
# Hyperlipidemia
Continue home Atorvastatin
# Pre-Diabetes Mellitus
Continue home Metformin
# Benign Prostatic Hyperplasia
# History of glaucoma
# History of squamous cell skin carcinoma, actinic keratoses
# History of Iron deficiency anemia
# History of nephrolithiasis
# History of obstructive sleep apnea
DVT Prophylaxis: Lovenox SQ
Code Status: Full Code
DW GI
total time spent 51 min
Anticipated Discharge: 24 - 48 hours
Subjective/Interval History
-
Date of Service: November 27, 2023
Objective Data
-
Labs:
Laboratory Results
11/27/23
06:39
WBC 4.8
Hgb 12.1 L
Hct 34.2 L
Plt Count 229
Sodium 133 L
Potassium 4.1
Chloride 104
Carbon Dioxide 23
BUN 23 H
Creatinine 1.0
Glucose 108 H
Calcium 9.4
Total Bilirubin 1.8 H
AST 190 H
ALT 308 H
Alkaline Phosphatase 340 H
Vital Signs:
Vital Signs
Temp Pulse Resp BP Pulse Ox
36.6 C 57 15 138/73 96
11/27/23 11:31 11/27/23 11:31 11/27/23 11:31 11/27/23 11:31 11/27/23 11:31
I&O
11/26/23 11/27/23 11/28/23
06:59 06:59 06:59
Intake Total 750 / 750 580 / 580
Output Total 350 / 350
Balance -350 / -350 750 / 750 580 / 580
Review of Systems
-
All other systems: Reviewed and negative
Physical Exam
-
General: Well Developed, Well Nourished, No Apparent Distress, Comfortable and Conversant; Negative Respiratory Distress
HEENT: Normocephalic, Atraumatic, Nose Appears Normal, Ears Appear Normal and Oxygen
Respiratory: Clear to Auscultation and Non Labored Respirations; Negative Accessory Resp Muscle Use
Cardiac: Regular Rhythm and S1/S2
GI: Soft, Nontender, Nondistended and Normal Bowel Sounds
Skin: Warm and Dry
Neuro: Awake, Alert, Oriented and AO x 3
Psych: Calm and Intact Judgement/Insight
Data Reviewed
-
Ultrasound: Report Reviewed by me
MRI: Report Reviewed by me
Medical Tests (Nuc Med, Echo etc): Report Reviewed by me (Cholangiogram)
Labs: Labs Reviewed by me
--- NOTE | 2023-11-27 14:55 | W.SUR.PREOP ---
Pre-Operative Surgical Note
-
I have examined this patient prior to the performance of the scheduled procedure.
The patient's condition is unchanged from the time of the current History and
Physical and the patient is able to undergo the scheduled procedure.
--- NOTE | 2023-11-27 14:56 | W.IMMPOSTOP ---
Surgical Immed Post Op Note
-
Primary Surgeon: Hans Cullen MD
Assisting Surgeon: Dr. Alice Corcoran
Machine Filler Servicer: ARON Moon
Pre-op Diagnosis: Cholelithiasis, abnormal LFTs, duodenitis
Post-op Diagnosis: Cholelithiasis, abnormal LFTs, chronic cholecystitis, nodular liver, duodenitis
Procedure Performed:
1. Laparoscopic cholecystectomy with cholangiogram
2. Liver biopsy
3. EGD (see GI procedure note)
Anesthesia Type: General
Specimen / Cultures:
1. Gallbladder and contents
2. Liver biopsy
3. Duodenal biopsy
4. GE junction biopsy
Estimated Blood Loss: 5cc
Complications: None
Operative Findings: Chronic cholecystitis. Critical view of safety obtained prior to cholangiogram which demonstrated no filling defects and normal biliary anatomy. And nodular appearing liver, liver biopsy obtained. Small piece of Surgicel was
left in the gallbladder fossa to assist with hemostasis. Intraoperative EGD performed which showed some duodenitis in D1-D2 as well as some ulceration which was biopsied. There is also a GEJ polyp which was biopsied.
POST OP PLAN:
Imaging: None
Labs: Routine AM
Diet: Okay for clears
Meds: Continue PPI.
Analgesia: Tylenol 650mg q6 Micky, Dulce 5mg q6 PRN, Dilaudid 0.5mg q2h PRN
Neuro/vascular checks: q4h
AC/AP: Hold Therapeutic AC, Ok for DVT PPx
Activity: Ad Odalys
Wound/Incisions/Drains: Routine
Abx: Continue antibiotics x 24 hours.
Dispo: RNF
--- NOTE | 2023-11-27 14:56 | W.PN.UPDATE ---
Update Note
Progress Note Update
s/p EGD
- Normal esophagus.
- Z-line variable, 42 cm from the incisors.
- A single ulcerated 5-7 mm polypoid lesion with no bleeding was found 42 cm from the incisors/cardia. Biopsies were taken with a cold forceps for histology.
- No gross lesions in the entire stomach.
- Many non-obstructing non-bleeding superficial duodenal ulcerated segment with no stigmata of bleeding were found in the duodenal bulb and in the first portion of the duodenum. Biopsies were taken with a cold forceps for histology.
pLAN
- Await pathology results.
- Use Protonix (pantoprazole) 40 mg PO BID.
- Avoid NSAID's.
- As per surgeon, slight liver nodularity noted and liver biopsy take during the lap leonardo , IOC negative.
[2023-11-27] MEDS: FLAGYL 500 MG IV (15:27)
--- NOTE | 2023-11-27 15:29 | OR.RPT ---
Operative Report
Operative Report
Patient Name: Hero Arvizu
: 1955
Date of Operation: 11/27/2023
Preoperative Diagnosis: Cholelithiasis, abnormal LFTs, duodenitis
Postoperative Diagnosis: Cholelithiasis, abnormal LFTs, chronic cholecystitis, nodular liver, duodenitis
Procedure(s):
1. Laparoscopic cholecystectomy with cholangiogram
2. Liver biopsy
3. EGD (see GI procedure note)
Surgeon(s):
Dr. Cullen
Manager Business Intelligence(s):
Dr. Alice Corcoran
ARON Moon
Anesthesia: General
Estimated Blood Loss: 5 cc
Urine Output: None
Drains/Lines/Implants: None
Specimens:
1. Gallbladder and contents
2. Liver biopsy
3. Duodenal biopsy
4. GE junction biopsy
HPI/Surgical Indications:
This is a 68-year-old male with a history of an umbilical hernia repair with mesh, hypertension, hyperlipidemia, prediabetes, spinal stenosis who in our ED was evaluated and was noted to have elevated LFTs and a very large gallstone. Subsequent
MRCP was negative for any CBD stone but was notable for some duodenitis. After discussion of risks/Benefits/Alternatives patient agreed to proceed with a laparoscopic cholecystectomy and possible simultaneous EGD.
Operative Findings: Chronic cholecystitis. Critical view of safety obtained prior to cholangiogram which demonstrated no filling defects and normal biliary anatomy. Nodular appearing liver, liver biopsy obtained. Small piece of Surgicel was left
in the gallbladder fossa to assist with hemostasis. Intraoperative EGD performed which showed some duodenitis in D1-D2 as well as some ulceration which was biopsied. There is also a GEJ polyp which was biopsied.
Procedure Description:
The patient was brought to the Operating Room and placed in the supine position with one arm tucked. Following uneventful induction of general endotracheal anesthesia, an orogastric tube was placed. The abdomen was prepped and draped in the usual
sterile fashion. A timeout was performed confirming the procedure, consent, and that IV antibiotics were infused and sequential compression devices were confirmed to be on. The abdomen was entered using a left subcostal Veress technique which
required 1 pass followed by a 5 mm right upper quadrant Optiview trocar entry. Pneumoperitoneum to 15 mmHg pressure was obtained without difficulty and we confirmed that no injury had occurred during our entry. The patient was positioned in reverse
Trendelenberg and rotated with the right side up slightly. Two 5mm trocars were then placed along the right subcostal margin, and a 12 mm port in the epigastrium. A locking grasping forceps was placed on the fundus of the gallbladder where it was
then retracted cephalad and to the right. Using appropriate grasping instruments, the peritoneum overlying the triangle of Calot was incised and extended superiorly on both the anterior and posterior gallbladder robertson. Some edema was noted in the
cystic triangle consistent with chronic cholecystitis. The infundibulum was dissected off the cystic plate. The cystic triangle was dissected until a critical view of safety was achieved. The cystic artery was medialized, dissected and controlled
with 2 proximal clips and 1 distal. The cystic duct/gallbladder junction in turn was identified, dissected circumferentially and a clip was placed. A ductotomy was made and a cholangiocatheter on an Adame clamp was inserted into the cystic duct. A
C-arm was draped and brought into the field. An intra-operative cholangiogram was performed and was noted to have:
No filling defects in the biliary tree
No significant biliary dilation
Brisk flow of contrast into the duodenum
Normal biliary anatomy
The catheter was then removed and the cystic duct was controlled with two clips. After ensuring both the artery and duct were divided, the gallbladder was freed from the liver using electrocautery. There was no spillage of bile or stones. The
liver was noted to be somewhat nodular with loss of the natural sharp edges of the liver so a pharmacy sales representative liver biopsy was taken from segment 4 and passed off the field. At this point Dr. Corcoran and her team came to the room and performed an
upper endoscopy. Please see her notes for more details however briefly the patient was noted to have some duodenitis as well as a GE junction gastric polyp which were both biopsied. There was no extraluminal pathology noted during or laparoscopy.
The gallbladder bed was inspected and excellent hemostasis was obtained. A small piece of Surgicel was placed in the fossa to help with hemostasis here. The gallbladder was extracted through the 12 mm trocar site using an endocatch bag. The
abdomen was again irrigated and excellent hemostasis was assured. All remaining trocars were then removed and the pneumoperitoneum was evacuated. The 12 mm trocar site was closed using 0 PDS suture. All trocar sites were closed at the skin level
using 4-0 Monocryl followed by Dermabond. Overall, the patient tolerated the procedure well and was taken to the Recovery Room postoperatively in stable condition.
I was the attending physician and performed the procedure with assistance from the LABORER RAGS above. I was present for all portions of the case.
Hans Cullen MD
[2023-11-27] MEDS: LOVENOX 40 MG SC (18:05)
[2023-11-27 20:21] LABS: Hepatitis B Surface Antigen Negative (Negative)
[2023-11-27 20:39] LABS: Hepatitis B Surface Antibody Negative; Hepatitis C Antibody Negative (Negative)
[2023-11-27] MEDS: MELATONIN 5 MG PO (21:14)
[2023-11-28 02:51] VITALS: BP 122/64
[2023-11-28 05:24] LABS: Hematocrit 32.3 % (39.0-52.0); Hemoglobin 11.5 g/dL (13.0-18.0); Mean Corp Hgb Conc. 35.6 g/dL (33.0-37.0); Mean Corpuscular Hgb 28.5 pg (27.0-31.0); Mean Corpuscular Volume 80.1 fL (80.0-94.0); Mean Platelet Volume 10.8 fL (7.4-10.4); Platelet Count 241 10^3/uL (130-400); Red Blood Cell Count 4.03 10^6/uL (4.70-6.10); Red Cell Dist. Width 14.2 % (11.5-14.5); White Blood Cell Count 6.1 10^3/uL (4.8-10.8)
[2023-11-28 05:45] LABS: ALT (SGPT) 315 U/L (0-50); AST (SGOT) 288 U/L (17-59); Albumin 3.4 g/dl (3.5-5.0); Alkaline Phosphatase 355 U/L (38-126); Blood Urea Nitrogen 27 mg/dl (9-20); Calcium 8.8 mg/dl (8.4-10.2); Carbon Dioxide 19 mmol/L (22-30); Chloride 105 mmol/L (98-107); Estimated Creatinine Clearance 86 ml/min; Glucose 146 mg/dl (70-99); Magnesium 2.1 mg/dl (1.6-2.3); Potassium 4.3 mmol/L (3.5-5.1); Sodium 132 mmol/L (135-145); Total Bilirubin 1.5 mg/dl (0.2-1.3); eGFR > 60.00
--- NOTE | 2023-11-28 07:00 | W.PN.GI.CBS2 ---
Today's Communication / Plan
-
See assessment and plan for details.
Assessment / Plan
-
1. Fever/elevated LFTs: Possibly passed CBD stone, with signs of chronic cholecystitis cholecystectomy, MRCP and IOC negative for retained CBD stone. LFTs are slightly higher today, though likely more postoperatively, status post liver biopsy. He
has no leukocytosis, fevers have resolved, blood cultures negative. We discussed trending LFTs, though he wants to go home and given his lack of pain, benign exam would be okay from a GI standpoint, repeat LFTs in 1 week. There was a slightly
nodular liver, status post liver biopsy, could have some component of underlying cirrhosis.
2. Duodenitis/GE junction polyp: Status post biopsy, no signs of gross bleeding. At this point would continue PPI and discharge, await pathology results, avoid NSAIDs. Will plan follow-up in the office in 2 to 3 weeks.
Subjective
Subjective
Date of Service: November 28, 2023
Patient doing well overall, denies any abdominal pain, no fevers or chills overnight.
Objective
Data Reviewed
Laboratory Data:
Laboratory Results
11/28/23 04:23
11/28/23 04:23
Laboratory Results
Magnesium 2.1 mg/dl (1.6-2.3) 11/28/23 04:23
Total Bilirubin 1.5 mg/dl (0.2-1.3) H 11/28/23 04:23
AST 288 U/L (17-59) H 11/28/23 04:23
ALT 315 U/L (0-50) H 11/28/23 04:23
Alkaline Phosphatase 355 U/L (38-126) H 11/28/23 04:23
Lipase 200 U/L (23-300) 11/25/23 21:03
Vital Signs and I&O:
Vital Signs
Temp Pulse Resp BP Pulse Ox
97.5 F 53 16 122/64 96
11/28/23 02:51 11/28/23 02:51 11/28/23 02:51 11/28/23 02:51 11/28/23 02:51
I&O
11/27/23 11/28/23 11/29/23
06:59 06:59 06:59
Intake Total 750 / 750 1260 / 1260
Balance 750 / 750 1260 / 1260
Physical Exam
Physical Exam
General: NAD
Abdomen: normal bowel sounds, soft, no tenderness, no masses or bruits, no ascites
[2023-11-28 07:35] VITALS: BP 149/77
--- NOTE | 2023-11-28 07:35 | W.PN.GS2 ---
Today's Communication / Plan
-
Dispo planning
Assessment / Plan
-
68-year-old male with PMH of HTN, HLD, prediabetes, spinal stenosis who presents after noting a fever at home of 102.9. LFT's have been elevated but trending slightly down today. Infectious work up with findings of large gallstone and duodenitis.
POD #1 status post laparoscopic cholecystectomy with cholangiogram, liver biopsy, EGD found to have chronic cholecystitis, cirrhotic appearing liver, duodenitis and GE junction polyp.
AFVSS
Labs stable
LFTs continue to downtrend appropriately.
Tolerating diet
Safe from surgical perspective for discharge.
Discharge instructions placed in chart.
Time Spent
Total Time Spent with Patient (in minutes): 10
Subjective Data
-
Date of Service: November 28, 2023
Interval Events:
No acute events overnight. Slept well. Pain Controlled. Denies Nausea/Vomiting, +bowel function. Tolerating diet.
Objective Data
-
Intake and Output
11/27/23 11/28/23 11/29/23
06:59 06:59 06:59
Intake Total 750 / 750 1260 / 1260
Balance 750 / 750 1260 / 1260
Intake:
Oral fluids 960 / 960
IV fluids (Total) 750 / 750 200 / 200
normosol 100 / 100
IV piggybacks 100 / 100
Other:
Number of approximated MODERATE 1
amounts of urine
Vital Signs
Temp Pulse Resp BP Pulse Ox
97.5 F 53 16 122/64 96
11/28/23 02:51 11/28/23 02:51 11/28/23 02:51 11/28/23 02:51 11/28/23 02:51
Lab Results
11/28/23 04:23
11/28/23 04:23
Calcium 8.8 mg/dl (8.4-10.2) 11/28/23 04:23
Magnesium 2.1 mg/dl (1.6-2.3) 11/28/23 04:23
Total Bilirubin 1.5 mg/dl (0.2-1.3) H 11/28/23 04:23
Direct Bilirubin 1.6 mg/dl (0.0-0.4) H 11/26/23 05:34
AST 288 U/L (17-59) H 11/28/23 04:23
ALT 315 U/L (0-50) H 11/28/23 04:23
Alkaline Phosphatase 355 U/L (38-126) H 11/28/23 04:23
Total Protein 6.0 g/dl (6.3-8.2) L 11/28/23 04:23
Albumin 3.4 g/dl (3.5-5.0) L 11/28/23 04:23
Physical Exam
-
GENERAL/NEURO: Awake, Alert, no distress
CHEST: Unlabored breathing on RA
ABDOMEN: Soft, Non-Tender, Non-Distended, incisions clean dry and intact.
[2023-11-28] MEDS: APRESOLINE 25 MG PO (09:44)
[2023-11-28] MEDS: NORVASC 10 MG PO (09:44)
[2023-11-28] MEDS: INSPRA 50 MG PO (09:44)
[2023-11-28] MEDS: FLAGYL 500 MG 100 IV (09:44)
[2023-11-28] MEDS: LIPITOR 20 MG PO (09:45)
[2023-11-28] MEDS: NSS (PRESERVATIVE FREE) 10 ML IV (09:45)
[2023-11-28] MEDS: GLUCOPHAGE 1000 MG PO (09:45)
[2023-11-28] MEDS: PROTONIX IV 40 MG IV (09:45)
[2023-11-28] MEDS: COZAAR 100 MG PO (09:45)
--- NOTE | 2023-11-28 10:56 | CM ---
CM following re: discharge planning.
Reviewed pt's chart, met with pt.
Pt expressed his desire to be discharged home today. 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
Per General surgery, Safe from surgical perspective for discharge.
Pt is aware and he stated his spouse will transport home.
D/c plan: home with no needs. Spouse to transport.
[2023-11-28 11:30] VITALS: BP 136/77
--- NOTE | 2023-11-28 12:19 | W.PN.HOSP.TC ---
Addendum entered and electronically signed by Hayde Whitley MD 11/28/23 13:37:
total DC time 35 min
Original Note:
Today's Communication/Plan
-
DC home today
Assessment / Plan
Assessment / Plan
MRCP Results, as per radiologist's report:
1. Moderate edema and inflammation around the 1st and 2nd portions the duodenum with associated mild to moderate duodenal wall thickening. Diagnostic possibilities are (1) acute peptic ulcer disease or (2) other causes of inflammatory or
infectious duodenitis.
2. No evidence for choledocholithiasis or biliary obstruction.
3. 1.6 cm gallstone.
4. Mild hepatosplenomegaly.
A/P:
# Fever [employer] likely due to Acute Cholecystitis vs duodenitis.
# Gallbladder Wall Thickening with large Gallstone
# Transaminitis - elevated AST/ ALT/ Total Bilirubin, improving
# Duodenal edema and inflammation with duodenal wall thickening
# Hepatosplenomegaly
Patient had fever at home, but no abdominal pain
Blood Cx negative
Continue empiric antibiotics Rocephin and Flagyl
MRCP noted Moderate edema and inflammation around the 1st and 2nd portions the duodenum with associated mild to moderate duodenal wall thickening.
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
Follow path report outpt
s/p cholangiogram and laparoscopic cholecystectomy 11/26 immediately after EGD
LFT have improved but still remain elevated, cont to monitor outpt, expect LFT to cont to improve outpt
Pt tolerated low residue diet
# Mild hyponatremia
# Right Hip Pain and Right Lower Extremity Pain/Radiculopathy
# Spinal stenosis
RLE appears neurovascularly intact
Continue home Gabapentin
Patient is supposed to get a MRI of his spine outpatient soon
# Hypertension
# History of Left Ventricular Hypertrophy
Continue home Amlodipine/Eplerenone
# Hyperlipidemia
Hold Atorvastatin for now with elevated LFT
# Pre-Diabetes Mellitus
Continue home Metformin
# Benign Prostatic Hyperplasia
# History of glaucoma
# History of squamous cell skin carcinoma, actinic keratoses
# History of Iron deficiency anemia
# History of nephrolithiasis
# History of obstructive sleep apnea
DVT Prophylaxis: Lovenox SQ
Code Status: Full Code
DW at bedside
Anticipated Discharge: Today
Subjective/Interval History
-
Date of Service: November 28, 2023
Objective Data
-
Labs:
Laboratory Results
11/28/23
04:23
WBC 6.1
Hgb 11.5 L
Hct 32.3 L
Plt Count 241
Sodium 132 L
Potassium 4.3
Chloride 105
Carbon Dioxide 19 L
BUN 27 H
Creatinine 0.9
Glucose 146 H
Calcium 8.8
Total Bilirubin 1.5 H
AST 288 H
ALT 315 H
Alkaline Phosphatase 355 H
Vital Signs:
Vital Signs
Temp Pulse Resp BP Pulse Ox
36.9 C 59 19 136/77 97
11/28/23 11:30 11/28/23 11:30 11/28/23 11:30 11/28/23 11:30 11/28/23 11:30
I&O
11/27/23 11/28/23 11/29/23
06:59 06:59 06:59
Intake Total 750 / 750 1260 / 1260
Balance 750 / 750 1260 / 1260
Review of Systems
-
All other systems: Reviewed and negative
Physical Exam
-
General: Well Developed, Well Nourished, No Apparent Distress, Comfortable and Conversant; Negative Respiratory Distress
HEENT: Normocephalic, Atraumatic, Nose Appears Normal and Ears Appear Normal
Respiratory: Clear to Auscultation and Non Labored Respirations; Negative Accessory Resp Muscle Use
Cardiac: Regular Rhythm and S1/S2
GI: Soft, Nontender, Nondistended and Normal Bowel Sounds
Skin: Warm and Dry
Neuro: Awake, Alert, Oriented and AO x 3
Psych: Calm and Intact Judgement/Insight
Data Reviewed
-
Ultrasound: Report Reviewed by me
MRI: Report Reviewed by me
Medical Tests (Nuc Med, Echo etc): Report Reviewed by me (Cholangiogram)
Labs: Labs Reviewed by me
--- NOTE | 2023-11-28 13:19 | W.DCSUMMARY ---
Discharge Summary
Discharge Data
Date of Admission: 11/25/23
Date of Discharge: 11/28/23
-
Pending Results: No
Hospital Course
Principal Diagnosis:
Fever prior to admission likely due to Acute Cholecystitis vs duodenitis.
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
Transaminitis
Chronic Diagnoses:�
Right Hip Pain and Right Lower Extremity Pain/Radiculopathy
Spinal stenosis
Hypertension on Amlodipine/Eplerenone
Hyperlipidemia. Hold Atorvastatin with elevated LFT
Pre-Diabetes Mellitus, on home Metformin
Benign Prostatic Hyperplasia
History of glaucoma
History of squamous cell skin carcinoma, actinic keratoses
History of Iron deficiency anemia
History of nephrolithiasis
History of obstructive sleep apnea
Consultations:�
Gastroenterology
General surgery
Procedures:�
Upper endoscopy
Lap cholecystectomy
Clinical course:�
This is a 68-year-old male, with past medical history as stated above, who presented with fever at home.
Problem 1:
Fever prior to admission likely due to acute cholecystitis vs duodenitis/duodenal ulcer with polypoid lesion at the GE junction
The patient's abdominal ultrasound noted single large gallstone with mild gallbladder wall thickening.
His follow-up MRCP confirmed mild amount of wall thickening in the gallbladder fundus, but there is no abnormal gallbladder distention or pericholecystic edema. The MRI also showed moderate edema and inflammation around the 1st and 2nd portions the
duodenum with associated mild to moderate duodenal wall thickening.
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
Patient has been informed to follow-up pathology report outpatient with GI.
He underwent cholangiogram and laparoscopic cholecystectomy on 11/26 by GS immediately after EGD.
The patient tolerated low residue diet following the procedure.
He did receive empiric antibiotics Rocephin and Flagyl for 3 days while in the hospital, and given there has been no documented fever or leukocytosis, antibiotic was not continued.
He can continue to monitor his LFT outpatient, result to his PCP/GI.
He has been informed while awaiting for his outpatient LFT result, to hold off on atorvastatin.
He can also discontinue naproxen which he was taking prior to admission due to the duodenal ulceration noted on EGD.
As for the rest of his medical problems, they were stable during his hospital stay.
Discharge Plan
-
Patient Disposition: Home (Routine Discharge)
Discharge Diagnosis/Procedures: Fever on admission due to acute cholecystitis vs duodenitis; Duodenal ulcerations with GE junction polyploid lesion that was biopsied (follow up pathology report outpatient); Elevated LFT
Condition: Good
Diet: As tolerated, Low Fat, Low Cholesterol and Low Residue
Activity: No strenuous activity
Bathing Restrictions: OK to Shower
Blood Work: repeat liver functions tests in 1 week with result to PCP/GI
Activity Restrictions/Additional Instructions:
Instructions following Laparoscopic cholecystectomy
Please call [phone] if you have any questions or concerns after your surgery.
Wound Care:
Your incisions are covered with skin glue which will come off on it�s own in 5-10 days.
It is ok to shower the day after your surgery. Do not scrub the incisions, let soap and water wash over them and pat dry.
� Bruising around your incisions is normal.
� Using ice packs will help minimize this swelling.
� No swimming or soaking incisions for 1 week.
� Your stitches will dissolve and do not need to be removed.
Urinary retention:
If you are unable to urinate 6-8 hours after your surgery, please call [phone] to discuss further management.
Activity:
No heavy lifting more than 15 pounds for the next 3 weeks, then you may gradually lift heavier objects as tolerated by discomfort. Otherwise activity as tolerated by your comfort level.
Pain Management:
Use Tylenol, ibuprofen and ice packs to treat your pain.
� You may take 650 milligrams of Tylenol (Max 3 grams per day) every 6 hours, and 600 mg of ibuprofen also every 6 hours. (you can alternate them every 3 hours)
� You may use an ice pack to your incision as needed.
� If you still have pain not controlled by these measures, take your prescription pain medication as prescribed.
Medications:
You may resume your home medications.
Bowel Medications:
Prescription pain medication can make you constipated. If you take this medication, also take colace 100 mg twice daily (this is over the counter). If this is not sufficient, you may take Miralax (polyethylene glycol) to help move your bowels.
Diet:
After your procedure, there are no dietary restrictions. You may notice loose stools for up to 4 weeks after surgery with fatty meals, if this is the case you may have to adjust your diet as needed.
Driving restrictions:
No driving if you are taking prescription pain medication or if you think your normal reaction time and attentiveness has been slowed by your surgery.
Things to Look out for:
Worsening Abdominal pain, redness or drainage from incision
Call Doctor for:
Please call if you notice worsening redness or drainage from incision(s) lasting longer than 5 days after your surgery, any foul-smelling drainage from the incision, pain not controlled by pain medications, persistent nausea and vomiting, or for any
fevers greater than 101.3 F. The number for questions/concerns is [phone]
Follow-up:
Follow-up appointment will be scheduled with your surgeon in 3-4 weeks. Please call prior to your appointment if you have any questions or concerns. [phone]
Referrals:
Khushi Christensen MD [Family Provider] - in less than 1 week
Hans Cullen MD [Active] - in two to four weeks
Alice Corcoran MD [Active] - (follow up 2-[address] Corcoran and [employer]MENT[employer] SCIENTIST or PA. Call office to arrange)
Additional Discharge Medication Instructions: Hold Lipitor for now (with elevated LFT)
Continue Protonix twice daily until further directed by your GI doctor
Prescriptions:
New
pantoprazole [Protonix] 40 mg tablet,delayed release (DR/EC)
40 mg PO BID Qty: 60 0RF
Continued
metformin 500 mg Tablet
1,000 mg PO BID
hydralazine 25 mg Tablet
25 mg PO TID
amlodipine 10 mg Tablet
10 mg PO DAILY
gabapentin 100 mg Capsule
100 mg PO TID PRN (Reason: nerve pain)
losartan 100 mg Tablet
100 mg PO DAILY
eplerenone 50 mg Tablet
50 mg PO BID
tadalafil [Cialis] 10 mg Tablet
10 mg PO DAILY PRN (Reason: ED)
Held
atorvastatin 20 mg Tablet
20 mg PO DAILY
Hold Instructions: Resume on 12/06/23.
Discontinued
naproxen 500 mg Tablet
500 mg PO BID PRN (Reason: pain)
Discharge Orders:
Discharge Patient (As Directed); Ordered 11/28/23
Ordered By: Hayde Whitley
Discharge Date and Time
Discharge Date/Time: 11/28/23 13:15
Print Language: WELSH
== END 2023-11-28 13:15 | disposition home or self-care (01) | DRG 357 ==
LOC: 2 SOUTH 19:58
PROVIDERS: ADMITTING PHYSICIAN Hospitalist; ATTENDING PHYSICIAN Internal Medicine; CONSULT PHYSICIAN Internal Medicine Gastroenterology; CONSULT PHYSICIAN Surgery; EMERGENCY PHYSICIAN Emergency Medicine; FAMILY PHYSICIAN Internal Medicine
PROC: 0FB04ZX Excision of Liver, Percutaneous Endoscopic Approach, Diagnostic (ICD-10-PCS; 2023-11-27)
PROC: 0FT44ZZ Resection of Gallbladder, Percutaneous Endoscopic Approach (ICD-10-PCS; 2023-11-27)
PROC: BF502Z0 Other Imaging of Bile Ducts using Fluorescing Agent, Intraoperative (ICD-10-PCS; 2023-11-27)
PROC: 0DJ08ZZ Inspection of Upper Intestinal Tract, Via Natural or Artificial Opening Endoscopic (ICD-10-PCS; 2023-11-27)
DX: K29.80 Duodenitis without bleeding (principal); E87.1 Hypo-osmolality and hyponatremia; K80.12 Calculus of gallbladder with acute and chronic cholecystitis without obstruction; R16.2 Hepatomegaly with splenomegaly, not elsewhere classified; K26.9 Duodenal ulcer, unspecified as acute or chronic, without hemorrhage or perforation; K22.81 Esophageal polyp; I10 Essential (primary) hypertension; E11.9 Type 2 diabetes mellitus without complications; Z79.84 Long term (current) use of oral hypoglycemic drugs; D50.9 Iron deficiency anemia, unspecified; E78.00 Pure hypercholesterolemia, unspecified; G47.33 Obstructive sleep apnea (adult) (pediatric); K31.7 Polyp of stomach and duodenum; N40.0 Benign prostatic hyperplasia without lower urinary tract symptoms; Z79.899 Other long term (current) drug therapy; Z87.442 Personal history of urinary calculi
CPT/HCPCS: 88304; 88305; 88307; 73502; 74181; 74300; 76000; 76700; 80053; 81003; 81015; 82248; 83605; 83690; 83735; 85025; 85027; 86706; 86803; 87040; 87340; 87502; 87811; 88313; 94660; 96365; 96375; 99285; A4300

== ENCOUNTER 2023-11-29 23:54 | Inpatient (IN) | payer OTHER, SELFPAY ==
[2023-11-29 18:02] VITALS: BP 150/80; BMI 31.9
[2023-11-29 19:37] LABS: % Basophils 0.6 % (0-2); % Eosinophils 3.7 % (0-6); % Immature Granulocytes 0.3 % (0-0.5); % Lymphocytes 4.4 % (20.5-51.1); % Monocytes 7.6 % (1.7-9.3); % Neutrophils 83.4 % (42.2-75.2); Absolute Basophils 0.1 10^3/uL (0-0.2); Absolute Eosinophils 0.4 10^3/uL (0-0.7); Absolute Lymphocytes 0.4 10^3/uL (1.2-3.4); Absolute Monocytes 0.7 10^3/uL (0.1-0.6); Absolute Neutrophils 7.9 10^3/uL (1.4-6.5); Hematocrit 39.3 % (39.0-52.0); Hemoglobin 13.5 g/dL (13.0-18.0); Mean Corp Hgb Conc. 34.4 g/dL (33.0-37.0); Mean Corpuscular Hgb 28.1 pg (27.0-31.0); Mean Corpuscular Volume 81.9 fL (80.0-94.0); Mean Platelet Volume 9.9 fL (7.4-10.4); Nucleated Red Blood Cells % 0 % (-); Platelet Count 272 10^3/uL (130-400); Red Cell Dist. Width 14.1 % (11.5-14.5); White Blood Cell Count 9.5 10^3/uL (4.8-10.8)
[2023-11-29 19:47] LABS: Lactic Acid 1.5 mmol/L (0.7-2.0)
--- NOTE | 2023-11-29 20:01 | ED.GENMED ---
History of Present Illness
General
Chief Complaint: Fever
Source: patient, records, family, previous radiology exam and previous hospital records
Exam Limitations: none
Time Seen by Provider: 11/29/23 19:10
Nursing documentation reviewed up to this point in time: agreed with
Travel History
Have you had any contact with someone who has COVID-19?: No
Do you have any symptoms of coronavirus? Fever > 100 degrees, chills, cough, shortness of breath, sore throat, loss of taste or smell, muscle aches, or headache?: No
History of Present Illness
History of Present Illness:
68-year-old male referred to the ER by primary care provider for evaluation of postoperative fever was admitted recently with abdominal pain and back pain fever elevated LFTs negative MRCP negative IntraOp cholangiogram, a large gallstone patient
states he recovered well, discharged yesterday today his primary care provider called him, during the conversation developed fever and chills, 100.7 tympanic, nausea without vomiting, has had some back pain right greater than left predating the
procedure, no dysuria or frequency no cough no shortness of breath no calf pain
Past History
Past History
ED Past Medical History: HTN and Hypercholesterolemia
ED Past Surgical History: Cholecystectomy, Orthopedic (Disc fusion), Urological (TURP, lithotripsy) and Other (mohs, umbilical hernia repair, right cataract)
Social History
Tobacco: Non-smoker
Alcohol: None
Drug: None
Personal:
Living: with family
Employment: Employed
Review of Systems
Review of Systems
All Other Systems: Not applicable
Constitutional: Reports fever, fatigue and chills
EENT: Reports no symptoms
Respiratory: Reports no symptoms; Denies cough or trouble breathing
Cardiac: Reports no symptoms
ABD/GI: Reports abdominal pain and nausea; Denies diarrhea
: Reports no symptoms; Denies dysuria or incontinence
Musculoskeletal: Reports other (Denies calf pain)
Skin: Reports no symptoms
Neurological: Reports weakness
Endocrine: Reports no symptoms
Psychiatric: Reports no symptoms
Phy Exam
Physical Exam
Physical Exam:
Physical Exam
General: 68 male feels warm nontoxic normal mental
Neck: No jaundice
Heart: Tach
Lungs: no acute respiratory distress. clear bilaterally
Abdomen: Soft tender in the right upper abdomen
Neuro: alert and oriented. no focal neurological deficits
Skin: no rash
Psychiatric: well kept. interactive and cooperative
Extremities: no edema. no calf tenderness.
Course
Orders/Labs/Results
Orders:
Orders
11/29/23 19:11
Urinalysis Reflex To Culture Urgent
Date Specimen was Collected: 11/29/23
Time Specimen was Collected: 19:15
11/29/23 19:28
Complete Blood Count/With Diff Urgent
Lactic Acid Q4H
Comment: CANCEL 2nd LACTIC ACID IF 1st LACTIC ACID IS LESS THAN 2
Blood Culture Q30M
[facility] Source: Blood/Venous
Specimen Description:
Blood Culture Q30M
[facility] Source: Blood/Venous
Specimen Description:
11/29/23 19:45
Comprehensive Metabolic Panel Urgent
Lipase Urgent
Comment: ADD ON
11/29/23 19:46
0.9% Sodium Chloride 1000 ml [Nss] 1,000 ml IV BOLUS
Acetaminophen [Tylenol] 650 mg PO NOW STA
HYDROmorphone [Dilaudid] 1 mg IV NOW STA
Ondansetron Injectable [Zofran] 4 mg IV NOW STA
CR Chest - 2 Views Urgent
Comment:
Reason For Exam: fever
11/29/23 19:47
CT Abd/pelvis W Iv Cont Urgent
Comment:
Reason For Exam: post op fever
11/29/23 20:51
Add On- LAB Urgent
Tests Added?: lipase
Abnormal Lab Results
11/29/23 11/29/23
19:28 19:45
Absolute Neuts (auto) 7.9 H 10^3/uL
(1.4-6.5)
Absolute Lymphs (auto) 0.4 L 10^3/uL
(1.2-3.4)
Absolute Monos (auto) 0.7 H 10^3/uL
(0.1-0.6)
Neutrophils % 83.4 H %
(42.2-75.2)
Lymphocytes % 4.4 L %
(20.5-51.1)
Sodium 133 L mmol/L
(135-145)
BUN 23 H mg/dl
(9-20)
Glucose 108 H mg/dl
(70-99)
AST 680 H* U/L
(17-59)
ALT 696 H* U/L
(0-50)
Alkaline Phosphatase 469 H U/L
(38-126)
Lipase 515 H U/L
(23-300)
11/29/23 19:28
11/29/23 19:45
Vital Signs
Initial and Last Documented VS:
Initial Vital Signs
Temp Pulse Resp BP Pulse Ox
100.5 F H 84 16 150/80 98
11/29/23 18:02 11/29/23 18:02 11/29/23 18:02 11/29/23 18:02 11/29/23 18:02
Last Documented Vital Signs
Temp Pulse Resp BP Pulse Ox
100.5 F H 84 16 150/80 98
11/29/23 18:02 11/29/23 18:02 11/29/23 18:02 11/29/23 18:02 11/29/23 18:02
MDM/Problems Addressed
Differential Diagnosis Includes:
Atelectasis wound infection intra-abdominal infection DVT
MDM/Problems Addressed:
Fever postop
Chronic conditions affecting care: Previous abdomnial surgery
Acute Exacerbation and/or Progression of Chronic Illness: Previous abdomnial surgery
*Radiology
Radiology exam reviewed: preliminary read by ED provider
*Pulse Oximetry
Patient hypoxic: no
*Critical Care Note
Total Time (30-74mins, 75-104mins- exclusive of procedures): Not Applicable
Data Reviewed
Review of Other/Old Records Reveals: Labs, Records, Radiology Studies and Operative Reports
Source: patient, records and spouse
Update Note
Update Note:
10 PM chest x-ray noted, labs are noted LFTs are up, allergies noted CT completed report pending do not believe he has a DVT by history and physical message sent to hospitalist General surgery and GI will be admitted
ED Attending Note
-
Portions of this chart may have been created with voice recognition software.� Occasional wrong word or��sound alike� substitutions may have occurred due to the inherent limitations of voice recognition software.
Discharge Plan
Departure
Patient Disposition: Admit
Date of Disposition: 11/29/23
Time of Disposition: 22:02
Admit to: Med/Surg
Presentation/result/management discussed w/ accepting MD/DO: Hospitalist
Condition: Fair
Discharge Problem:
Fever
Prescriptions:
No Action
atorvastatin 20 mg Tablet
20 mg PO DAILY
Hold Instructions: Resume on 12/06/23.
hydralazine 25 mg Tablet
25 mg PO TID
amlodipine 10 mg Tablet
10 mg PO DAILY
gabapentin 100 mg Capsule
100 mg PO BID
losartan 100 mg Tablet
100 mg PO DAILY
eplerenone 50 mg Tablet
50 mg PO BID
tadalafil [Cialis] 10 mg Tablet
10 mg PO DAILYPRN PRN (Reason: ED)
pantoprazole [Protonix] 40 mg tablet,delayed release (DR/EC)
40 mg PO BID Qty: 60 0RF
gabapentin 100 mg Capsule
100 mg PO DAILYPRN PRN (Reason: nerve pain)
metformin 500 mg tablet extended release 24 hr
1,000 mg PO BID
Rx Instructions:
on hold until 12/06/23
Referrals:
Khusih Christensen MD [Family Provider] -
Interventions
Interventions:
*Risk Screen - Suicide Last Done: 11/29/23 18:02
*General Assessment Last Done: 11/29/23 20:39
*Neglect/Abuse Screening Last Done: 11/29/23 18:02
ED- Fall Risk Assessment Last Done: 11/29/23 18:02
*ED COVID-19 Vaccine History Last Done: 11/29/23 18:02
ED- Neurological Assessment Last Done: 11/29/23 19:41
ED-Skin Assessment Last Done: 11/29/23 19:41
Discharge Date and Time
Print Language: GREENLAND[place]
[2023-11-29] MEDS: NSS 1000 IV (20:13)
[2023-11-29] MEDS: DILAUDID 1 MG IV (20:14)
[2023-11-29] MEDS: TYLENOL 650 MG PO (20:14)
[2023-11-29 20:15] LABS: ALT (SGPT) 696 U/L (0-50); AST (SGOT) 680 U/L (17-59); Albumin 3.8 g/dl (3.5-5.0); Alkaline Phosphatase 469 U/L (38-126); Blood Urea Nitrogen 23 mg/dl (9-20); Calcium 8.9 mg/dl (8.4-10.2); Carbon Dioxide 25 mmol/L (22-30); Chloride 103 mmol/L (98-107); Estimated Creatinine Clearance 87 ml/min; Glucose 108 mg/dl (70-99); Potassium 3.7 mmol/L (3.5-5.1); Sodium 133 mmol/L (135-145); Total Bilirubin 1.2 mg/dl (0.2-1.3); Total Protein 6.7 g/dl (6.3-8.2); eGFR > 60.00
[2023-11-29] MEDS: ZOFRAN 4 MG IV (20:16)
[2023-11-29 21:23] LABS: Lipase 515 U/L (23-300)
[2023-11-29 22:19] VITALS: BP 115/59
--- NOTE | 2023-11-29 22:43 | HPS.HSE ---
Addendum entered and electronically signed by Samira Hood MD 11/30/23 03:04:
Procal elevated. will resume antibiotics cef/flagyl (no fevers on this regimen last admission); patient with penicillin allergy.
Original Note:
Family Physician
-
Family Physician: Khushi Christensen
Chief Complaint
-
fever
History of Present Illness
Mr. Hero Arvizu is a 68 yo man with hx HTN, HLD, spinal stenosis, BPH, pre-DM on metformin, CYRUS, MORA, recent admission 11/24-11/28/23 for fever 2/2 acute cholecystitis versus duodenitis/duodenal ulcer s/p EGD 11/26 followed by cholangiogram and
laparoscopic cholecystectomy that day presents to the ER with fever.
During last admission patient presented with fever, no abdominal pain and found to have elevated liver enzymes. He had an MRI which showed e/o duodenitis versus acute PUD. He underwent EGD 11/26 showing ulceration in duodenal bulb and 1st portion
GE junction polypoid lesion s/p biopsy. Following EGD she underwent cholangiogram, lap cholecystectomy and liver biopsy (pathology pending). MRCP and IOC were negative for retained CBD stone. He received 3 days of antibiotics in-house then these
were stopped at discharge.
Patient did not have a fever during hospitalization and plan was to DC with close follow up liver enzymes. He had a low grade fever to 100.7 today and therefore represented to the ER. Patient continues to deny abdominal pain. No nausea/vomiting.
He states since starting metformin he has had decreased appetite. No chest pain. No shortness of breath. No LE swelling. No rash. No headache or neck pain. He had normal BM today.
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 He has chronic nerve pain distal right extremity but after this game he had more pain right hip extending down to knee. Mild low back pain. He has no
bowel/bladder changes and no saddle anesthesia.
Medical History
Past Medical History
Past Medical History: Reports Other (As per HPI above)
Past Surgical History: Reports Orthopedic (Disc fusion) and Urological (TURP, lithotripsy)
Additional Past Surgical History:
mohs, umbilical hernia repair, right cataract
Social History
Tobacco: Non-smoker
Alcohol: Occasional
Drug: None
Family History
Family History: Cancer and Hypertension
Allergies / Home Medications
Allergies reflects when Allergies were last updated in [facility].
Home Medications with original date entered in [facility]
Allergy/Medication List:
Allergies
Allergy/AdvReac Type Severity Reaction Status Date / Time
Penicillins Allergy Unknown Verified 11/29/23 18:02
Home Medications
amlodipine 10 mg tablet 10 mg PO DAILY Blood Pressure 11/25/23
atorvastatin 20 mg tablet 20 mg PO DAILY High Cholesterol 11/25/23
eplerenone 50 mg tablet 50 mg PO BID Heart Disease/Condition 11/25/23
gabapentin 100 mg capsule 100 mg PO BID 11/25/23
hydralazine 25 mg tablet 25 mg PO TID Blood Pressure 11/25/23
losartan 100 mg tablet 100 mg PO DAILY Blood Pressure 11/25/23
tadalafil 10 mg tablet (Cialis) 10 mg PO DAILYPRN PRN ED 11/25/23
pantoprazole 40 mg tablet,delayed release (Protonix) 40 mg PO BID #60 tabs 11/28/23
gabapentin 100 mg capsule 100 mg PO DAILYPRN PRN nerve pain 11/29/23
metformin 500 mg tablet,extended release 24 hr 1,000 mg PO BID 11/29/23
Review of Systems
-
History Source: Patient
A 12 point ROS was completed and negative except as noted: Yes
Physical Exam
Vital Signs
Vital Signs
Temp Pulse Resp BP Pulse Ox
99.8 F 64 16 115/59 92
11/29/23 22:19 11/29/23 22:19 11/29/23 18:02 11/29/23 22:19 11/29/23 22:19
Physical Exam
General: No Apparent Distress and Conversant
HEENT: Anicteric and PERRLA
Respiratory: Clear; No Wheezes
Cardiac: S1/S2 and Regular Rhythm
GI: Soft and Non Tender
Musculoskeletal: Other (no mid-spine tenderness; 5/5 strength right hip flexion)
Skin: Warm and Dry; No Rash
Neuro: AO x 3
Psych: Calm
Laboratory Results
-
11/29/23 19:28
11/29/23 19:45
Laboratory Results
Lactic Acid Cancelled 11/29/23 23:15
Total Bilirubin 1.2 mg/dl (0.2-1.3) 11/29/23 19:45
AST 680 U/L (17-59) H* 11/29/23 19:45
ALT 696 U/L (0-50) H* 11/29/23 19:45
Alkaline Phosphatase 469 U/L (38-126) H 11/29/23 19:45
Lipase 515 U/L (23-300) H 11/29/23 19:45
Data Reviewed
-
Diagnostic Radiology: Report Reviewed by me
Lab Data: Labs Reviewed by me
Impression/Plan
-
Mr. Hero Arvizu is a 68 yo man with hx HTN, HLD, spinal stenosis, BPH, pre-DM on metformin, CYRUS, MORA, recent admission 11/24-11/28/23 for fever 2/2 acute cholecystitis versus duodenitis/duodenal ulcer s/p EGD 11/26 followed by cholangiogram and
laparoscopic cholecystectomy that day presents to the ER with fever.
Triage VS: T 100.5, P 84, RR 16, BP 150/80, SpO2 98%
LABS: WBC 9.5, Hg 13.5, PLT 272, Na 133, K+ 3.7, BUN 23, Cr 0.9, Glucose 108, T. Bili 1.2, AST 680, ALT 696, Al Phos 469
CXR
FINDINGS/impression:
Mild atelectasis at the right lung base.
No pneumothorax.
No congestive heart failure.
MRI (from last admission 11/26/23)
IMPRESSION:
1. Moderate edema and inflammation around the 1st and 2nd portions the duodenum with associated mild to moderate duodenal wall thickening. Diagnostic possibilities are (1) acute peptic ulcer disease or (2) other causes of inflammatory or
infectious duodenitis.
2. No evidence for choledocholithiasis or biliary obstruction.
3. 1.6 cm gallstone.
4. Mild hepatosplenomegaly.
Abdomen/Pelvis CT (11/29/23)
IMPRESSION:
Expected postsurgical changes in the gallbladder fossa. No focal collection or abscess. Trace free fluid in the pelvis. No free air.
Mild gaseous distention of proximal to mid jejunum. Findings suggest a possible transition point in the central mid abdomen. However, reported clinical symptoms do not support a small bowel obstruction. Therefore, this could possibly reflect a small
bowel ileus. Clinical correlation therefore necessary.
Nonobstructing left renal calculus. No obstructive uropathy.
Mild atelectasis at the right lung base.
Fever
Transaminitis
Recent lap cholecystectomy
-AST and ALT 600's compared to 2-300's prior admission
-hep serology testing negative last admission; no CBD stone seen on MRI or IOS
-awaiting on liver biopsy pathology results
-ORTHODONTIC ASSISTANT atorvastatin has been on hold since last admission
-will check covid, influenza, mono
-tylenol level (although patient does not admit to using much)
-obtain procalcitonin, hold off on antibiotics for now
-admit to med/surg
-gentle IVF
-F/U blood cultures
-GI consult - unclear if further testing necessary if pathology report is pending
-patient without mid-spine tenderness on exam and can flex hip against resistance - doubt source of infection, sounds like MSK especially exacerbated by recent lacrosse game. Hip x-ray 11/24 with severe left and moderate right hip osteoarthritis,
no fracture
Duodenitis
-s/p EGD last admission
-continue ORTHODONTIC ASSISTANT Protonix
-no NSAIDs
Essential HTN
-continue ORTHODONTIC ASSISTANT regimen Losartan, Hydralazine, Amlodipine, Eplerenone with hold parameters
HLD
-hold ORTHODONTIC ASSISTANT Lipitor with elevated liver enzymes
Pre-DM
-hold ORTHODONTIC ASSISTANT metformin
-ISS
Spinal Stenosis
Right hip pain
RLE Radiculopathy
--patient without mid-spine tenderness on exam and can flex hip against resistance - doubt source of infection, sounds like MSK especially exacerbated by recent lacrosse game. Hip x-ray 11/24 with severe left and moderate right hip osteoarthritis,
no fracture
-scheduled for outpatient MRI spine
# Benign Prostatic Hyperplasia
# History of glaucoma
# History of squamous cell skin carcinoma, actinic keratoses
# History of Iron deficiency anemia
# History of nephrolithiasis
# History of obstructive sleep apnea
DVT PPx lovenox subQ
FULL CODE
[2023-11-29] MEDS: PROTONIX 40 MG PO (23:30)
[2023-11-29] MEDS: NEURONTIN 200 MG PO (23:30)
[2023-11-29 23:55] LABS: Monotest Negative (Negative)
[2023-11-29 23:59] LABS: COVID-19 Antigen Negative (Negative)
[2023-11-30] LABS: Urine Albumin Trace (Neg - Trace); Urine Bilirubin Negative (Negative); Urine Character Clear (Clear); Urine Color Yellow; Urine Glucose Negative (Negative); Urine Ketone Negative (Negative); Urine Leukocyte Trace (Negative); Urine Nitrite Negative (Negative); Urine Occult Blood Negative (Negative); Urine Urobilinogen Negative (Neg - 1+)
[2023-11-30 00:10] VITALS: BP 152/84; BMI 31.8
[2023-11-30 00:11] LABS: Acetaminophen < 10 ug/ml (10-30)
[2023-11-30 00:16] LABS: Glucose - Point of Care 130 mg/dl (70-99)
[2023-11-30 00:37] LABS: Procalcitonin 1.53 ng/ml (0.0-0.25)
[2023-11-30] MEDS: DILAUDID 1 MG IV (00:48)
[2023-11-30] MEDS: NSS 1000 IV (00:48)
[2023-11-30 01:20] LABS: Urine Bacteria Few (Negative); Urine Red Blood Cell 0-2 /HPF (0-2); Urine Squamous Cell 0-2 /LPF (Few); Urine White Cell 0-2 /HPF (0-5)
--- NOTE | 2023-11-30 02:03 | PTCARENOTE ---
pt admitted from ED to room 339-1. ambulated from stretcher to bed without difficulty, VSS, afebrile, pt AAOx3. Pt's lap leonardo sites on abdomen approximated, surgical adhesion present, slight bruising noted to site at RLQ. Pt states that his L hand
has nerve damage from previous skiing accident. Pt offers moderate pain complaint in generalized lower back and R hip, ALEXANDRA Hunt notified, refer to MAR for medical claims assistant. Call walker within reach.
[2023-11-30] MEDS: STERILE WATER FOR INJECTION 10 ML IV (03:54)
[2023-11-30] MEDS: ROCEPHIN 1000 MG IV (03:54)
[2023-11-30] MEDS: FLAGYL 500 MG 100 IV ×3 (03:55→20:24)
[2023-11-30 05:40] LABS: % Basophils 0.8 % (0-2); % Eosinophils 6.1 % (0-6); % Immature Granulocytes 0.4 % (0-0.5); % Monocytes 13.3 % (1.7-9.3); % Neutrophils 65.4 % (42.2-75.2); Absolute Eosinophils 0.3 10^3/uL (0-0.7); Absolute Lymphocytes 0.7 10^3/uL (1.2-3.4); Absolute Monocytes 0.7 10^3/uL (0.1-0.6); Absolute Neutrophils 3.5 10^3/uL (1.4-6.5); Hematocrit 30.4 % (39.0-52.0); Hemoglobin 10.2 g/dL (13.0-18.0); Mean Corp Hgb Conc. 33.6 g/dL (33.0-37.0); Mean Corpuscular Hgb 27.9 pg (27.0-31.0); Mean Corpuscular Volume 83.3 fL (80.0-94.0); Nucleated Red Blood Cells % 0 % (-); Platelet Count 223 10^3/uL (130-400); Red Blood Cell Count 3.65 10^6/uL (4.70-6.10); Red Cell Dist. Width 14.4 % (11.5-14.5); White Blood Cell Count 5.3 10^3/uL (4.8-10.8)
[2023-11-30 06:03] LABS: ALT (SGPT) 580 U/L (0-50); AST (SGOT) 481 U/L (17-59); Alkaline Phosphatase 387 U/L (38-126); Blood Urea Nitrogen 20 mg/dl (9-20); Calcium 8.6 mg/dl (8.4-10.2); Carbon Dioxide 27 mmol/L (22-30); Chloride 106 mmol/L (98-107); Estimated Creatinine Clearance 78 ml/min; Glucose 110 mg/dl (70-99); Lipase 774 U/L (23-300); Potassium 4.2 mmol/L (3.5-5.1); Sodium 135 mmol/L (135-145); Total Bilirubin 0.9 mg/dl (0.2-1.3); Total Protein 5.5 g/dl (6.3-8.2); eGFR > 60.00
[2023-11-30 07:12] LABS: Glucose - Point of Care 102 mg/dl (70-99)
[2023-11-30 07:51] VITALS: BP 135/65
--- NOTE | 2023-11-30 08:38 | W.PN.GI.CBS2 ---
Today's Communication / Plan
-
Please see assessment and plan for details.
Assessment / Plan
-
1. Fever/elevated LFTs: Initially again with elevated LFTs and a necroinflammatory pattern and low-grade fever without clear source, now persistent status postcholecystectomy. MRCP and intraoperative cholangiogram were negative for ductal
dilation, PSC, CBD stone etc., and again has no significant abdominal pain. Other considerations include other infection, other viral infection, tickborne illness etc. Bacterial infection seems less likely given previously negative blood cultures
though still not excluded, and while his lower back and hip pain are likely more musculoskeletal this could also be a source. By report his liver biopsy showed PBC, which would not be related to LFT elevation in this pattern or fever, though I will
discuss with pathology as other etiologies including overlap syndrome or autoimmune hepatitis could be. Small duct PSC is also possible though much less likely, and again his LFTs are in a necroinflammatory pattern, not cholestatic. At this point,
again we will await repeat blood cultures. Will check hepatitis A serologies, B was negative previously, ID has been consulted and would consider evaluation for tickborne illnesses as well as EBV and CMV and will defer evaluation to them. Is
marked acute elevation in ALT and AST are likely more from intraoperative cholangiogram and contrast under pressure, and is commonly seen, trending down. Will continue to trend for now. I discussed with the patient's PCP.
Subjective
Subjective
Date of Service: November 30, 2023
Please see consultation from recent admission for full details. Patient is a 68-year-old male who initially presented with fever and LFTs, with thickened duodenum on MRI as well as gallstone and possible gallbladder wall thickening. He underwent
cholecystectomy which showed probable chronic cholecystitis though no acute cholecystitis, and had intraoperative cholangiogram which appears to reviewed which was normal. He had intraoperative endoscopy which showed an inflammatory appearing
nodule at the GE junction as well as superficial duodenal ulcerations. His LFTs were mildly more elevated postoperative day 1 though again had no pain as he had not had during his entire hospitalization. Blood cultures were negative and he was
discharged. Yesterday he was feeling okay though had recurrent fever, and on return to the emergency room was found to have more elevated LFTs and low-grade temperature, though again no leukocytosis or abdominal pain. He did eat yesterday without
difficulty, some mild decreased appetite though no vomiting. He did have bowel movements. 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
usual. He has no known tick bites. He has no other new rashes or joint swelling.
Objective
Data Reviewed
Laboratory Data:
Laboratory Results
11/30/23 05:11
11/30/23 05:11
Laboratory Results
Magnesium 2.0 mg/dl (1.6-2.3) 11/30/23 05:11
Total Bilirubin 0.9 mg/dl (0.2-1.3) 11/30/23 05:11
AST 481 U/L (17-59) H 11/30/23 05:11
ALT 580 U/L (0-50) H* 11/30/23 05:11
Alkaline Phosphatase 387 U/L (38-126) H 11/30/23 05:11
Lipase 774 U/L (23-300) H 11/30/23 05:11
Vital Signs and I&O:
Vital Signs
Temp Pulse Resp BP Pulse Ox
98.5 F 53 16 135/65 92
11/30/23 07:51 11/30/23 07:51 11/30/23 07:51 11/30/23 07:51 11/30/23 07:51
I&O
11/29/23 11/30/23 12/01/23
06:59 06:59 06:59
Intake Total 720 / 720
Output Total 0 / 0
Balance 720 / 720
CT:
IMPRESSION:
Expected postsurgical changes in the gallbladder fossa. No focal collection or abscess. Trace free fluid in the pelvis. No free air.
Mild gaseous distention of proximal to mid jejunum. Findings suggest a possible transition point in the central mid abdomen. However, reported clinical symptoms do not support a small bowel obstruction. Therefore, this could possibly reflect a small
bowel ileus. Clinical correlation therefore necessary.
Nonobstructing left renal calculus. No obstructive uropathy.
Mild atelectasis at the right lung base.
Physical Exam
Physical Exam
General: NAD
Abdomen: normal bowel sounds, soft, no tenderness, no masses or bruits, no ascites
[2023-11-30] MEDS: NOVOLOG FLEXPEN-LOW RESISTANCE SC ×2 (09:10→12:41)
[2023-11-30 09:15] LABS: Glycohemoglobin (HgbA1c) 6.3 % (4.0-5.6)
[2023-11-30] MEDS: APRESOLINE 25 MG PO ×3 (09:33→21:53)
[2023-11-30] MEDS: NEURONTIN 100 MG PO ×3 (09:33→20:34)
[2023-11-30] MEDS: PROTONIX 40 MG PO ×2 (09:33→20:28)
[2023-11-30] MEDS: COZAAR 100 MG PO (09:33)
[2023-11-30] MEDS: INSPRA 50 MG PO ×2 (09:33→20:28)
[2023-11-30] MEDS: NORVASC 10 MG PO (09:33)
--- NOTE | 2023-11-30 09:57 | W.PN.HOSP.TC ---
Today's Communication/Plan
-
see A/P
Assessment / Plan
Assessment / Plan
68 yo man with PMH HTN, HLD, spinal stenosis, BPH, pre-DM on metformin, CYRUS, MORA, recent admission 11/24 - 11/28/23 for fever 2/2 acute cholecystitis versus duodenitis/duodenal ulcer s/p EGD 11/26 followed by cholangiogram and laparoscopic
cholecystectomy that day, returned to the ER due to fever.
During last admission patient presented with fever, no abdominal pain and found to have elevated liver enzymes. He had an MRI which showed e/o duodenitis versus acute PUD. He underwent EGD 11/26 showing ulceration in duodenal bulb and 1st portion GE
junction polypoid lesion s/p biopsy. Following EGD, he underwent cholangiogram, lap cholecystectomy and liver biopsy (pathology pending). MRCP and IOC were negative for retained CBD stone. He received 3 days of antibiotics in-house then these were
stopped at discharge.
Patient did not have a fever during hospitalization and plan was to DC with close follow up liver enzymes. He had a low grade fever to 100.7 on DOA and therefore represented to the ER.
Patient continues to deny abdominal pain. No nausea/vomiting. He states since starting metformin he has had decreased appetite.
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 He has chronic nerve pain distal right extremity but after this game he had more pain right hip extending down to knee. Mild low back pain.
CT AP from this admission (11/29/23)
Expected postsurgical changes in the gallbladder fossa. No focal collection or abscess. Trace free fluid in the pelvis. No free air.
Mild gaseous distention of proximal to mid jejunum. Findings suggest a possible transition point in the central mid abdomen. However, reported clinical symptoms do not support a small bowel obstruction. Therefore, this could possibly reflect a small
bowel ileus. Clinical correlation therefore necessary.
Nonobstructing left renal calculus. No obstructive uropathy.
Mild atelectasis at the right lung base.
A/P:
# Fever
# Worsening transaminitis
# Recent EGD and lap cholecystectomy
AST and ALT 600's compared to 2-300's prior admission
hep serology testing negative last admission; no CBD stone seen on MRI
EGD biopsy pathology result from 11/26 noted Acute duodenitis
pending gallbladder path report
WASH WORKER atorvastatin has been on hold since last admission, cont to hold
Pt's COVID/Flu are monospot test are negative
Follow blood Cx
Procal elevated at 1.53
CXR noted Mild atelectasis at the right lung base.
Will treat as CAP
cont ceftriaxone/Flagyl and add Azithromycin
ID CS for fever
Cont to monitor LFT
GI consult for worsening transaminitis
# Duodenitis
s/p EGD last admission
continue WASH WORKER Protonix
no NSAIDs
# Essential HTN
continue WASH WORKER regimen Losartan, Hydralazine, Amlodipine, Eplerenone with hold parameters
# HLD
hold WASH WORKER Lipitor with elevated liver enzymes
# Pre-DM
hold WASH WORKER metformin
ISS
# Spinal Stenosis
# Right hip pain
# RLE Radiculopathy
patient without mid-spine tenderness on exam and can flex hip against resistance - doubt source of infection, likely MSK especially exacerbated by recent lacrosse game.
Hip x-ray 11/24 with severe left and moderate right hip osteoarthritis, no fracture
scheduled for outpatient MRI spine
# Benign Prostatic Hyperplasia
# History of glaucoma
# History of squamous cell skin carcinoma, actinic keratoses
# History of Iron deficiency anemia
# History of nephrolithiasis
# History of obstructive sleep apnea
DVT PPx lovenox subQ
FULL CODE
Anticipated Discharge: > 48 hours
Subjective/Interval History
-
Date of Service: November 30, 2023
Objective Data
-
Labs:
Laboratory Results
05/02/24 05/02/24
05:11 09:25
WBC 5.3
Hgb 10.2 L D
Hct 30.4 L
Plt Count 223
PT Pending
INR Pending
Sodium 135
Potassium 4.2
Chloride 106
Carbon Dioxide 27
BUN 20
Creatinine 1.0
Glucose 110 H
Calcium 8.6
Total Bilirubin 0.9
AST 481 H
ALT 580 H*
Alkaline Phosphatase 387 H
Vital Signs:
Vital Signs
Temp Pulse Resp BP Pulse Ox
36.9 C 53 16 135/65 92
11/30/23 07:51 11/30/23 07:51 11/30/23 07:51 11/30/23 07:51 11/30/23 07:51
I&O
11/29/23 11/30/23 12/01/23
06:59 06:59 06:59
Intake Total 720 / 720
Output Total 0 / 0
Balance 720 / 720
Review of Systems
-
All other systems: Reviewed and negative
Respiratory: Denies Cough or Trouble Breathing
Abdomen/GI: Denies Abdominal Pain
Physical Exam
-
General: Well Developed, Well Nourished, No Apparent Distress, Comfortable and Conversant; Negative Respiratory Distress
HEENT: Normocephalic, Atraumatic, Nose Appears Normal and Ears Appear Normal
Respiratory: Clear to Auscultation and Non Labored Respirations; Negative Accessory Resp Muscle Use
Cardiac: Regular Rhythm and S1/S2
GI: Soft, Nontender, Nondistended and Normal Bowel Sounds
Skin: Warm and Dry
Neuro: Awake, Alert, Oriented and AO x 3
Psych: Calm and Intact Judgement/Insight
Data Reviewed
-
Diagnostic Radiology: Image personally visualized and interpreted and Report Reviewed by me
CT Scan: Report Reviewed by me
Labs: Labs Reviewed by me
[2023-11-30 10:01] LABS: INR 1.09; PT 14.2 Sec (11.4-14.6)
--- NOTE | 2023-11-30 11:00 | W.PN.UPDATE ---
Update Note
Progress Note Update
I reviewed with pathology, there was significant biliary tract inflammation, with granuloma though also some interface hepatitis, could be overlap syndrome, final read is pending, as well as serologies.
[2023-11-30] MEDS: MORPHINE SULFATE 1 MG IV ×2 (11:43→21:50)
[2023-11-30 12:08] LABS: Glucose - Point of Care 147 mg/dl (70-99)
[2023-11-30] MEDS: ZITHROMAX INFUSION 250 IV (12:43)
--- NOTE | 2023-11-30 14:26 | CON.ID ---
Consultation
-
Date/Time Consultation Requested: 11/30/2023 07:46
Date/Time Consultation Performed: 11/29/2020 1415
Requesting Provider: Dr. Whitley
Performing Provider: Dr. Gonzalez
Reason for Consultation: Fever
Chief Complaint / Past History
History of Present Illness
Hero Pemberton is a 68-year-old male being evaluated at the request of Dr. Whitley in regards to fever. History is obtained from chart review, along patient. Additional history was obtained from the patient's who was at the bedside.
The patient reports that he was in his usual state of health until late last week when he had the acute onset of fevers and chills, along with rigors. He developed temperatures up to 102.9. The following day his blood pressure was noted to be up,
and because of ongoing hip and leg pain he presented to the emergency room where he was found to have elevation in his LFTs. Workup included MRCP, and gallstones were found. Ultimately he underwent cholecystectomy approximately 4 days ago. He was
discharged the next day, but yesterday he developed acute onset of mild rigors, and had a temperature up to 100.5 and he was advised by his PCP to come back to the emergency room for further evaluation. Here he was found to be 100.5. He was placed
on empiric antibiotics, and Infectious Diseases asked to comment upon further antimicrobial therapy. At presentation, he was not noted to have a leukocytosis, although he did have a left shift. Additionally, his LFTs again were elevated, but have
improved today.
Currently he denies any abdominal pain. He does complain of chronic right hip discomfort.
Past History
Additional Past Medical History:
HTN
Dyslipidemia
Additional Past Surgical History:
Cholecystectomy
Disc fusion
TURP; Lithotripsy
Mohs surgery
Umbilical hernia repair
Right cataract surgery
Allergy History:
Penicillins Allergy (Verified 11/29/23 18:02)
Unknown
Medications Reviewed: Yes
Current Antibiotics:
Azithromycin 5 mg IV every 24 hours
Ceftriaxone 1 g IV every 24 hours
Metronidazole 500 mg IV every 8 hours
Social History
Tobacco: Non-Smoker
Alcohol: None
Drug: None
Personal:
Living: With Family
Employment: Employed
Family History
Family History: Not Pertinent
Review of Systems
Vital Signs
Temp Pulse Resp BP Pulse Ox
98.4 F 53 16 135/65 92
11/30/23 12:18 11/30/23 07:51 11/30/23 07:51 11/30/23 07:51 11/30/23 07:51
Physical Exam
Physical Exam
Constitutional: No Acute Distress, Comfortable and Non-toxic
Eyes: No Conjunctival Hemorrhage and Sclera Anicteric
Oral: No Thrush and No Ulcers
Cardiovascular: Regular Rate, S1/S2 and Murmur; Negative S3/S4
Pulmonary: Clear; Negative Wheezes, Rales or Rhonchi
Gastrointestinal: Soft, Non Tender, Distended, Normal Bowel Sounds, No Rebound and No Guarding
Extremities: Negative Edema, Clubbing, Cyanosis, Splinter Hemorrhage or Janeway Lesions
Neurological: Awake and Alert
Psychological: Calm
Lab / Diagnostic Study Results
11/30/23 05:11
11/30/23 05:11
Abs Immat Gran (auto) 0.0 10^3/uL (0-0.05) 11/30/23 05:11
Absolute Neuts (auto) 3.5 10^3/uL (1.4-6.5) 11/30/23 05:11
Absolute Lymphs (auto) 0.7 10^3/uL (1.2-3.4) L 11/30/23 05:11
Absolute Monos (auto) 0.7 10^3/uL (0.1-0.6) H 11/30/23 05:11
Absolute Basos (auto) 0.0 10^3/uL (0-0.2) 11/30/23 05:11
Immature Gran % 0.4 % (0-0.5) 11/30/23 05:11
Neutrophils % 65.4 % (42.2-75.2) 11/30/23 05:11
Lymphocytes % 14.0 % (20.5-51.1) L 11/30/23 05:11
Monocytes % 13.3 % (1.7-9.3) H 11/30/23 05:11
Eosinophils % 6.1 % (0-6) H 11/30/23 05:11
Basophils % 0.8 % (0-2) 11/30/23 05:11
PT 14.2 Sec (11.4-14.6) 11/30/23 09:25
INR 1.09 11/30/23 09:25
Lactic Acid Cancelled 11/29/23 23:15
Procalcitonin 1.53 ng/ml (0.0-0.25) H 11/29/23 23:49
Ur Squamous Epith Cells 0-2 /LPF (Few) 11/29/23 23:49
Microbiology Results
Micro:
11/30/23 10:46 MRSA Screen - Pending
Nose
11/29/23 23:31 Influenza Types A & B (EDEL) - Final
Nasal Swab Negative for Influenza A & B, NAAT
Negative results must be combined with clinical observations
and patient history.
Nucleic Acid Amplification test (NAAT)performed on the
[email or web address] ID [email or web address] platform.
11/29/23 19:28 Blood Culture - Pending
Blood/Venous
11/29/23 19:28 Blood Culture - Pending
Blood/Venous
Assessment / Plan
Fever (post-op)
Nml WBC with left shift
Transaminitis
Elevated lipase
HTN
Dyslipidemia
Recommendations:
Continue with empiric Rocephin and metronidazole. Discontinue further Azithromycin.
Trend LFTs, lipase.
Monitor white count and temperature curve.
Follow pending blood cultures.
Repeat blood cultures for temperature greater than 100.5 degrees.
--- NOTE | 2023-11-30 15:08 | CM ---
Met with patient and his at the bedside; initial assessment completed
Pharmacy verified: [facility], [facility], [place]
Patient and his live in a townhouse; 4 steps to enter; 18 steps between floors; powder room on the 1st floor; 2nd floor bath has walk-in shower with bench
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
DME: CPAP
SNF/Rehab/Home Health utilization history: none
Transportation: will provide ride home
DC Plan: pending hospital course; will monitor for discharge needs
[2023-11-30 15:39] VITALS: BP 145/61
[2023-11-30 16:39] LABS: Glucose - Point of Care 153 mg/dl (70-99)
[2023-11-30] MEDS: NOVOLOG FLEXPEN-LOW RESISTANCE 1 UNITS SC (17:46)
[2023-11-30] MEDS: LOVENOX 40 MG SC (17:48)
[2023-11-30 18:41] LABS: Hepatitis A IgM Antibody Negative (Negative)
[2023-11-30 19:22] LABS: Hepatitis A Antibody, Total Negative (Negative)
[2023-11-30] MEDS: FLUSH (NSS) 2 FLUSH IV (20:25)
[2023-11-30 21:58] LABS: Glucose - Point of Care 156 mg/dl (70-99)
[2023-11-30 23:50] VITALS: BP 138/71
[2023-12-01] MEDS: STERILE WATER FOR INJECTION 10 ML IV (04:15)
[2023-12-01] MEDS: FLUSH (NSS) 3 FLUSH IV (04:16)
[2023-12-01] MEDS: FLAGYL 500 MG 100 IV ×2 (04:16→11:37)
[2023-12-01] MEDS: ROCEPHIN 1000 MG IV (04:16)
[2023-12-01 06:33] LABS: Hematocrit 29.9 % (39.0-52.0); Hemoglobin 10.1 g/dL (13.0-18.0); Mean Corp Hgb Conc. 33.8 g/dL (33.0-37.0); Mean Corpuscular Hgb 27.9 pg (27.0-31.0); Mean Corpuscular Volume 82.6 fL (80.0-94.0); Mean Platelet Volume 10.8 fL (7.4-10.4); Platelet Count 244 10^3/uL (130-400); Red Blood Cell Count 3.62 10^6/uL (4.70-6.10); Red Cell Dist. Width 14.4 % (11.5-14.5); White Blood Cell Count 7.1 10^3/uL (4.8-10.8)
[2023-12-01 06:57] LABS: Blood Urea Nitrogen 19 mg/dl (9-20); Calcium 8.8 mg/dl (8.4-10.2); Carbon Dioxide 23 mmol/L (22-30); Chloride 107 mmol/L (98-107); Estimated Creatinine Clearance 97 ml/min; Glucose 108 mg/dl (70-99); Potassium 3.9 mmol/L (3.5-5.1); Sodium 134 mmol/L (135-145); eGFR > 60.00
[2023-12-01 07:36] LABS: Glucose - Point of Care 116 mg/dl (70-99)
[2023-12-01 07:48] VITALS: BP 177/81
[2023-12-01] MEDS: PROTONIX 40 MG PO ×2 (07:50→20:40)
[2023-12-01] MEDS: INSPRA 50 MG PO ×2 (07:50→20:40)
[2023-12-01] MEDS: NEURONTIN 100 MG PO ×3 (07:50→22:04)
[2023-12-01] MEDS: COZAAR 100 MG PO (07:54)
[2023-12-01] MEDS: APRESOLINE 25 MG PO ×3 (07:54→22:04)
[2023-12-01] MEDS: NORVASC 10 MG PO (07:54)
[2023-12-01] MEDS: NOVOLOG FLEXPEN-LOW RESISTANCE SC ×2 (08:01→12:21)
[2023-12-01 08:12] LABS: ALT (SGPT) 378 U/L (0-50); AST (SGOT) 236 U/L (17-59); Alkaline Phosphatase 367 U/L (38-126); Direct Bilirubin 0.5 mg/dl (0.0-0.4); Total Bilirubin 0.7 mg/dl (0.2-1.3); Total Protein 5.5 g/dl (6.3-8.2)
--- NOTE | 2023-12-01 10:17 | W.PN.HOSP.TC ---
Today's Communication/Plan
-
see A/P
Assessment / Plan
Assessment / Plan
68 yo man with PMH HTN, HLD, spinal stenosis, BPH, pre-DM on metformin, CYRUS, MORA, recent admission 11/24 - 11/28/23 for fever 2/2 acute cholecystitis versus duodenitis/duodenal ulcer s/p EGD 11/26 followed by cholangiogram and laparoscopic
cholecystectomy that day, returned to the ER due to fever.
During last admission patient presented with fever, no abdominal pain and found to have elevated liver enzymes. He had an MRI which showed e/o duodenitis versus acute PUD. He underwent EGD 11/26 showing ulceration in duodenal bulb and 1st portion GE
junction polypoid lesion s/p biopsy. Following EGD, he underwent cholangiogram, lap cholecystectomy and liver biopsy (pathology pending). MRCP and IOC were negative for retained CBD stone. He received 3 days of antibiotics in-house then these were
stopped at discharge.
Patient did not have a fever during hospitalization and plan was to DC with close follow up liver enzymes. He had a low grade fever to 100.7 on DOA and therefore represented to the ER.
Patient continues to deny abdominal pain. No nausea/vomiting. He states since starting metformin he has had decreased appetite.
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 He has chronic nerve pain distal right extremity but after this game he had more pain right hip extending down to knee. Mild low back pain.
CT AP from this admission (11/29/23)
Expected postsurgical changes in the gallbladder fossa. No focal collection or abscess. Trace free fluid in the pelvis. No free air.
Mild gaseous distention of proximal to mid jejunum. Findings suggest a possible transition point in the central mid abdomen. However, reported clinical symptoms do not support a small bowel obstruction. Therefore, this could possibly reflect a small
bowel ileus. Clinical correlation therefore necessary.
Nonobstructing left renal calculus. No obstructive uropathy.
Mild atelectasis at the right lung base.
A/P:
# Fever, unclear etiology
# Worsening transaminitis, improved
# Recent EGD and lap cholecystectomy
AST and ALT 600's compared to 2-300's prior admission, now trending down
hep serology testing negative last admission; no CBD stone seen on MRI
EGD biopsy pathology result from 11/26 noted Acute duodenitis
pending gallbladder path report
DEFENSE TRAVEL ADMINISTRATOR atorvastatin has been on hold since last admission, cont to hold
Pt's COVID/Flu are monospot test are negative
blood Cx negative
Procal elevated at 1.53
CXR noted Mild atelectasis at the right lung base.
cont ceftriaxone/Flagyl per ID, no Azithromycin per ID
ID on board
GI on board
# Duodenitis
s/p EGD last admission
continue DEFENSE TRAVEL ADMINISTRATOR Protonix
no NSAIDs
# Essential HTN
continue DEFENSE TRAVEL ADMINISTRATOR regimen Losartan, Hydralazine, Amlodipine, Eplerenone with hold parameters
# HLD
hold DEFENSE TRAVEL ADMINISTRATOR Lipitor with elevated liver enzymes
# Pre-DM
hold DEFENSE TRAVEL ADMINISTRATOR metformin
ISS
# Spinal Stenosis
# Right hip pain
# RLE Radiculopathy
patient without mid-spine tenderness on exam and can flex hip against resistance - doubt source of infection, likely MSK especially exacerbated by recent lacrosse game.
Hip x-ray 11/24 with severe left and moderate right hip osteoarthritis, no fracture
scheduled for outpatient MRI spine
# Benign Prostatic Hyperplasia
# History of glaucoma
# History of squamous cell skin carcinoma, actinic keratoses
# History of Iron deficiency anemia
# History of nephrolithiasis
# History of obstructive sleep apnea
DVT PPx lovenox subQ
FULL CODE
DW at bedside
Anticipated Discharge: Within 24 hours
Subjective/Interval History
-
Date of Service: December 01, 2023
Objective Data
-
Labs:
Laboratory Results
12/01/23
05:13
WBC 7.1
Hgb 10.1 L
Hct 29.9 L
Plt Count 244
Sodium 134 L
Potassium 3.9
Chloride 107
Carbon Dioxide 23
BUN 19
Creatinine 0.8
Glucose 108 H
Calcium 8.8
Total Bilirubin 0.7
AST 236 H
ALT 378 H
Alkaline Phosphatase 367 H
Vital Signs:
Vital Signs
Temp Pulse Resp BP Pulse Ox
36.8 C 60 16 177/81 97
12/01/23 07:48 12/01/23 07:48 12/01/23 07:48 12/01/23 07:48 12/01/23 07:48
I&O
11/30/23 12/01/23 12/02/23
06:59 06:59 06:59
Intake Total 720 / 720 2009
Output Total 0 / 0
Balance 720 / 720 2009
Review of Systems
-
All other systems: Reviewed and negative
Respiratory: Denies Cough or Trouble Breathing
Abdomen/GI: Denies Abdominal Pain
Physical Exam
-
General: Well Developed, Well Nourished, No Apparent Distress, Comfortable and Conversant; Negative Respiratory Distress
HEENT: Normocephalic, Atraumatic, Nose Appears Normal and Ears Appear Normal
Respiratory: Clear to Auscultation and Non Labored Respirations; Negative Accessory Resp Muscle Use
Cardiac: Regular Rhythm and S1/S2
GI: Soft, Nontender, Nondistended and Normal Bowel Sounds
Skin: Warm and Dry
Neuro: Awake, Alert, Oriented and AO x 3
Psych: Calm and Intact Judgement/Insight
Data Reviewed
-
Diagnostic Radiology: Image personally visualized and interpreted and Report Reviewed by me
CT Scan: Report Reviewed by me
Labs: Labs Reviewed by me
[2023-12-01 12:12] VITALS: BP 143/82; BP 150/83; BP 157/79; PULSE 60; PULSE 66; PULSE 68
[2023-12-01 12:18] LABS: Glucose - Point of Care 110 mg/dl (70-99)
--- NOTE | 2023-12-01 12:26 | W.PN.ID1 ---
Date of Service
Date of Service: December 01, 2023
Today's Communication
Transition to oral cefdinir and metronidazole.
Assessment / Plan
Fever (post-op)
Nml WBC with left shift
Transaminitis
- improving
Elevated lipase
HTN
Dyslipidemia
Recommendations:
Continue abx but transition to oral cefdinir and metronidazole.
Trend LFTs, lipase.
Monitor white count and temperature curve.
Follow pending blood cultures.
Repeat blood cultures for temperature greater than 100.5 degrees.
Chief Complaint
-: Fever
Subjective / Review of Systems
Review of Systems: No Fever and No Chills
Vital Signs / Physical Exam
Vital Signs
Vital Signs
Temp Pulse Resp BP Pulse Ox
98.6 F 60 16 177/81 97
12/01/23 12:12 12/01/23 07:48 12/01/23 07:48 12/01/23 07:48 12/01/23 07:48
Physical Exam
Constitutional: No Acute Distress, Comfortable and Non-toxic
Eyes: No Conjunctival Hemorrhage and Sclera Anicteric
Cardiovascular: S1/S2; Negative S3/S4
Pulmonary: Non Labored; Negative Wheezes or Rales
Gastrointestinal: Soft, Non Tender and Non Distended
Neurological: Awake and Alert
Psychological: Calm
Objective Data
Lab Data
Lab Results
12/01/23 05:13
12/01/23 05:13
PT 14.2 Sec (11.4-14.6) 11/30/23 09:25
INR 1.09 11/30/23 09:25
Estimated Creat Clear 97 ml/min 12/01/23 05:13
Lactic Acid Cancelled 11/29/23 23:15
Total Bilirubin 0.7 mg/dl (0.2-1.3) 12/01/23 05:13
AST 236 U/L (17-59) H 12/01/23 05:13
ALT 378 U/L (0-50) H 12/01/23 05:13
Alkaline Phosphatase 367 U/L (38-126) H 12/01/23 05:13
Most recent labs reviewed.
Micro Results:
11/29/23 19:28 Blood Culture - Preliminary
Blood/Venous No Growth in 24 hours- Final report to follow
11/29/23 19:28 Blood Culture - Preliminary
Blood/Venous No Growth in 24 hours- Final report to follow
11/30/23 10:46 MRSA Screen - Pending
Nose
11/29/23 23:31 Influenza Types A & B (EDEL) - Final
Nasal Swab Negative for Influenza A & B, NAAT
Negative results must be combined with clinical observations
and patient history.
Nucleic Acid Amplification test (NAAT)performed on the
[employer] platform.
[2023-12-01 15:14] VITALS: BP 170/70
--- NOTE | 2023-12-01 15:27 | W.PN.GI.CBS2 ---
Today's Communication / Plan
-
trend lfts and fever curve, likely dc tmwr
Assessment / Plan
-
1. Fever/elevated LFTs: Initially again with elevated LFTs and a necroinflammatory pattern and low-grade fever without clear source, now persistent status postcholecystectomy. MRCP and intraoperative cholangiogram were negative for ductal
dilation, PSC, CBD stone etc., and again has no significant abdominal pain. Other considerations include other infection, other viral infection, tickborne illness etc. Bacterial infection seems less likely given previously negative blood cultures
though still not excluded, and while his lower back and hip pain are likely more musculoskeletal this could also be a source. By report his liver biopsy showed significant biliary tract inflammation, with granuloma though also some interface
hepatitis, could be overlap syndrome, final read is pending, as well as serologies (per Dr. Murray). At this point, again we will await repeat blood cultures so far negative. Will check hepatitis A serologies, B was negative previously, ID has
been consulted and would consider evaluation for tickborne illnesses as well as EBV and CMV and will defer evaluation to them. The marked acute elevation in ALT and AST are likely more from intraoperative cholangiogram and contrast under pressure,
and is commonly seen, trending down. Will continue to trend for now.
Patient doing well today, likely discharge tomorrow.
I s/w hospitalist. I have also reached out to hepatology - ideally would like them to review slides as well.
Patient has upcoming appt with Dr. Corcoran in 2 weeks as well.
Subjective
Subjective
Date of Service: December 01, 2023
feels well no further fevers
Objective
Data Reviewed
Laboratory Data:
Laboratory Results
12/01/23 05:13
12/01/23 05:13
Laboratory Results
PT 14.2 Sec (11.4-14.6) 11/30/23 09:25
INR 1.09 11/30/23 09:25
Magnesium 2.0 mg/dl (1.6-2.3) 12/01/23 05:13
Total Bilirubin 0.7 mg/dl (0.2-1.3) 12/01/23 05:13
AST 236 U/L (17-59) H 12/01/23 05:13
ALT 378 U/L (0-50) H 12/01/23 05:13
Alkaline Phosphatase 367 U/L (38-126) H 12/01/23 05:13
Lipase 774 U/L (23-300) H 11/30/23 05:11
Vital Signs and I&O:
Vital Signs
Temp Pulse Resp BP Pulse Ox
98.9 F 65 16 170/70 96
12/01/23 15:14 12/01/23 15:14 12/01/23 15:14 12/01/23 15:14 12/01/23 15:14
I&O
11/30/23 12/01/23 12/02/23
06:59 06:59 06:59
Intake Total 720 / 720 2009
Output Total 0 / 0
Balance 720 / 720 2009
Physical Exam
Physical Exam
GI: Non Distended and Non Tender
[2023-12-01 16:36] LABS: Glucose - Point of Care 151 mg/dl (70-99)
[2023-12-01] MEDS: NOVOLOG FLEXPEN-LOW RESISTANCE 1 UNITS SC (16:47)
[2023-12-01] MEDS: LOVENOX 40 MG SC (17:03)
[2023-12-01] MEDS: OMNICEF 300 MG PO (20:43)
[2023-12-01 21:30] LABS: Glucose - Point of Care 112 mg/dl (70-99)
[2023-12-01] MEDS: FLAGYL 500 MG PO (22:05)
[2023-12-01] MEDS: TYLENOL 650 MG PO (22:06)
[2023-12-01 22:24] LABS: F-Actin Antibody IgG 5 Units (0-19); Mitochondrial M2 Ab, IgG 3.6 Units (0.0-24.9)
[2023-12-01 23:00] VITALS: BP 147/71
[2023-12-01 23:17] LABS: LKM-1 Ab (IgG) 1.5 U (0.0-24.9)
[2023-12-02 06:27] LABS: Hematocrit 34.1 % (39.0-52.0); Hemoglobin 11.8 g/dL (13.0-18.0); Mean Corp Hgb Conc. 34.6 g/dL (33.0-37.0); Mean Platelet Volume 9.9 fL (7.4-10.4); Platelet Count 341 10^3/uL (130-400); Red Blood Cell Count 4.21 10^6/uL (4.70-6.10); Red Cell Dist. Width 14.1 % (11.5-14.5); White Blood Cell Count 7.8 10^3/uL (4.8-10.8)
[2023-12-02 06:54] LABS: ALT (SGPT) 372 U/L (0-50); AST (SGOT) 149 U/L (17-59); Albumin 3.6 g/dl (3.5-5.0); Alkaline Phosphatase 460 U/L (38-126); Blood Urea Nitrogen 13 mg/dl (9-20); Calcium 9.4 mg/dl (8.4-10.2); Carbon Dioxide 26 mmol/L (22-30); Chloride 103 mmol/L (98-107); Direct Bilirubin 0.5 mg/dl (0.0-0.4); Estimated Creatinine Clearance 97 ml/min; Glucose 112 mg/dl (70-99); Potassium 4.2 mmol/L (3.5-5.1); Sodium 133 mmol/L (135-145); Total Bilirubin 0.9 mg/dl (0.2-1.3); Total Protein 6.3 g/dl (6.3-8.2); eGFR > 60.00
[2023-12-02 07:00] VITALS: BP 180/84
[2023-12-02 07:45] LABS: Glucose - Point of Care 114 mg/dl (70-99)
[2023-12-02] MEDS: NOVOLOG FLEXPEN-LOW RESISTANCE SC (07:51)
[2023-12-02] MEDS: NEURONTIN 100 MG PO (07:51)
[2023-12-02] MEDS: COZAAR 100 MG PO (07:51)
[2023-12-02] MEDS: INSPRA 50 MG PO (07:52)
[2023-12-02] MEDS: PROTONIX 40 MG PO (07:52)
[2023-12-02] MEDS: APRESOLINE 25 MG PO (07:52)
[2023-12-02] MEDS: NORVASC 10 MG PO (07:52)
[2023-12-02] MEDS: FLAGYL 500 MG PO (07:52)
[2023-12-02] MEDS: OMNICEF 300 MG PO (07:52)
[2023-12-02] MEDS: TYLENOL 650 MG PO (07:53)
[2023-12-02 11:37] LABS: Glucose - Point of Care 172 mg/dl (70-99)
--- NOTE | 2023-12-02 11:49 | W.PN.HOSP.TC ---
Addendum entered and electronically signed by Hayde Whitley MD 12/02/23 14:28:
total DC time 35 min
Original Note:
Today's Communication/Plan
-
DC home today
Assessment / Plan
Assessment / Plan
68 yo man with PMH HTN, HLD, spinal stenosis, BPH, pre-DM on metformin, CYRUS, MORA, recent admission 11/24 - 11/28/23 for fever 2/2 acute cholecystitis versus duodenitis/duodenal ulcer s/p EGD 11/26 followed by cholangiogram and laparoscopic
cholecystectomy that day, returned to the ER due to fever.
During last admission patient presented with fever, no abdominal pain and found to have elevated liver enzymes. He had an MRI which showed e/o duodenitis versus acute PUD. He underwent EGD 11/26 showing ulceration in duodenal bulb and 1st portion GE
junction polypoid lesion s/p biopsy. Following EGD, he underwent cholangiogram, lap cholecystectomy and liver biopsy (pathology pending). MRCP and IOC were negative for retained CBD stone. He received 3 days of antibiotics in-house then these were
stopped at discharge.
Patient did not have a fever during hospitalization and plan was to DC with close follow up liver enzymes. He had a low grade fever to 100.7 on DOA and therefore represented to the ER.
Patient continues to deny abdominal pain. No nausea/vomiting. He states since starting metformin he has had decreased appetite.
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 He has chronic nerve pain distal right extremity but after this game he had more pain right hip extending down to knee. Mild low back pain.
CT AP from this admission (11/29/23)
Expected postsurgical changes in the gallbladder fossa. No focal collection or abscess. Trace free fluid in the pelvis. No free air.
Mild gaseous distention of proximal to mid jejunum. Findings suggest a possible transition point in the central mid abdomen. However, reported clinical symptoms do not support a small bowel obstruction. Therefore, this could possibly reflect a small
bowel ileus. Clinical correlation therefore necessary.
Nonobstructing left renal calculus. No obstructive uropathy.
Mild atelectasis at the right lung base.
A/P:
# Fever, unclear etiology
# Worsening transaminitis, improved
# Recent EGD and lap cholecystectomy
AST and ALT 600's compared to 2-300's prior admission, now trending down
hep serology testing negative last admission; no CBD stone seen on MRI
EGD biopsy pathology result from 11/26 noted Acute duodenitis
pending gallbladder/liver path report, follow up outpt with GI
MATH TUTOR atorvastatin has been on hold since last admission, cont to hold
Pt's COVID/Flu are monospot test are negative
blood Cx negative
Procal elevated at 1.53
CXR noted Mild atelectasis at the right lung base but pt without resp symptoms
ceftriaxone/Flagyl transitioned to oral cefdinir and metronidazole, would cont for 5 more days following discharge
repeat LFT outpt with result to PCP/GI
# Duodenitis
s/p EGD last admission
continue MATH TUTOR Protonix
no NSAIDs
# Essential HTN
continue MATH TUTOR regimen Losartan, Hydralazine, Amlodipine, Eplerenone with hold parameters
# HLD
hold MATH TUTOR Lipitor with elevated liver enzymes
repeat LFT outpt with result to PCP/GI
# Pre-DM
hold MATH TUTOR metformin, resume outpt
ISS
# Spinal Stenosis
# Right hip pain
# RLE Radiculopathy
patient without mid-spine tenderness on exam and can flex hip against resistance - doubt source of infection, likely MSK especially exacerbated by recent lacrosse game.
Hip x-ray 11/24 with severe left and moderate right hip osteoarthritis, no fracture
scheduled for outpatient MRI spine
# Benign Prostatic Hyperplasia
# History of glaucoma
# History of squamous cell skin carcinoma, actinic keratoses
# History of Iron deficiency anemia
# History of nephrolithiasis
# History of obstructive sleep apnea
DVT PPx lovenox subQ
FULL CODE
DW at bedside
Anticipated Discharge: Today
Subjective/Interval History
-
Date of Service: December 02, 2023
Objective Data
-
Labs:
Laboratory Results
12/02/23
06:00
WBC 7.8
Hgb 11.8 L
Hct 34.1 L
Plt Count 341 D
Sodium 133 L
Potassium 4.2
Chloride 103
Carbon Dioxide 26
BUN 13
Creatinine 0.8
Glucose 112 H
Calcium 9.4
Total Bilirubin 0.9
AST 149 H
ALT 372 H
Alkaline Phosphatase 460 H
Vital Signs:
Vital Signs
Temp Pulse Resp BP Pulse Ox
36.9 C 66 17 180/84 97
12/02/23 07:00 12/02/23 07:00 12/02/23 07:00 12/02/23 07:00 12/02/23 07:00
I&O
12/01/23 12/02/23 12/03/23
06:59 06:59 06:59
Intake Total 2009 1140 / 1140
Balance 2009 1140 / 1140
Review of Systems
-
All other systems: Reviewed and negative
Respiratory: Denies Cough or Trouble Breathing
Abdomen/GI: Denies Abdominal Pain
Physical Exam
-
General: Well Developed, Well Nourished, No Apparent Distress, Comfortable and Conversant; Negative Respiratory Distress
HEENT: Normocephalic, Atraumatic, Nose Appears Normal and Ears Appear Normal
Respiratory: Clear to Auscultation and Non Labored Respirations; Negative Accessory Resp Muscle Use
Cardiac: Regular Rhythm and S1/S2
GI: Soft, Nontender, Nondistended and Normal Bowel Sounds
Skin: Warm and Dry
Neuro: Awake, Alert, Oriented and AO x 3
Psych: Calm and Intact Judgement/Insight
Data Reviewed
-
Diagnostic Radiology: Image personally visualized and interpreted and Report Reviewed by me
CT Scan: Report Reviewed by me
Labs: Labs Reviewed by me
[2023-12-02 12:04] VITALS: BP 140/65
--- NOTE | 2023-12-02 13:01 | W.PN.GI.CBS2 ---
Today's Communication / Plan
-
discharge
Assessment / Plan
-
1. Fever/elevated LFTs: Initially again with elevated LFTs and a necroinflammatory pattern and low-grade fever without clear source, now persistent status postcholecystectomy. MRCP and intraoperative cholangiogram were negative for ductal
dilation, PSC, CBD stone etc., and again has no significant abdominal pain. Other considerations include other infection, other viral infection, tickborne illness etc. Bacterial infection seems less likely given previously negative blood cultures
though still not excluded, and while his lower back and hip pain are likely more musculoskeletal this could also be a source. By report his liver biopsy showed significant biliary tract inflammation, with granuloma though also some interface
hepatitis, could be overlap syndrome, final read is pending, as well as serologies (per Dr. Murray). At this point, again we will await repeat blood cultures so far negative. Will check hepatitis A serologies, B was negative previously, ID has
been consulted and would consider evaluation for tickborne illnesses as well as EBV and CMV and will defer evaluation to them. The marked acute elevation in ALT and AST are likely more from intraoperative cholangiogram and contrast under pressure,
and is commonly seen, trending down. Recommend repeat LFTs 1 week
Patient doing well today, plan discharge today.
I s/w hospitalist. I have also reached out to hepatology yesterday they asked to be updated once official path/labs back.
Patient has upcoming appt with Dr. Corcoran in 2 weeks as well.
Subjective
Subjective
Date of Service: December 02, 2023
patient seen prior to d/c (note written 4 hours after seeing him due to emergencies in hospital)
no fevers, feel well
Objective
Data Reviewed
Laboratory Data:
Laboratory Results
12/02/23 06:00
12/02/23 06:00
Laboratory Results
PT 14.2 Sec (11.4-14.6) 11/30/23 09:25
INR 1.09 11/30/23 09:25
Magnesium 2.0 mg/dl (1.6-2.3) 12/01/23 05:13
Total Bilirubin 0.9 mg/dl (0.2-1.3) 12/02/23 06:00
AST 149 U/L (17-59) H 12/02/23 06:00
ALT 372 U/L (0-50) H 12/02/23 06:00
Alkaline Phosphatase 460 U/L (38-126) H 12/02/23 06:00
Lipase 774 U/L (23-300) H 11/30/23 05:11
Vital Signs and I&O:
Vital Signs
Temp Pulse Resp BP Pulse Ox
98.3 F 64 18 140/65 95
12/02/23 12:04 12/02/23 12:04 12/02/23 12:04 12/02/23 12:04 12/02/23 12:04
I&O
12/01/23 12/02/23 12/03/23
06:59 06:59 06:59
Intake Total 2009 1140 / 1140
Balance 2009 1140 / 1140
Physical Exam
Physical Exam
GI: Non Distended and Non Tender
[2023-12-02 13:22] LABS: ANA, IgG Reflex to HEp-2 None Detected (None Detected)
--- NOTE | 2023-12-02 14:08 | W.DCSUMMARY ---
Discharge Summary
Discharge Data
Date of Admission: 11/29/23
Date of Discharge: 12/02/23
-
Pending Results: No
Hospital Course
Principal Diagnosis:
Fever, unclear etiology
Worsening transaminitis, which has improved
Recent endoscopy with diagnosis of duodenitis
Recent lap leonardo with liver biopsy, pending pathology report
Chronic Diagnoses:�
Essential hypertension
Hyperlipidemia, holding prior to admission Lipitor due to elevated LFT currently
Prediabetes
Spinal Stenosis
Right hip pain
Right leg radiculopathy
Benign Prostatic Hyperplasia
History of glaucoma
History of squamous cell skin carcinoma, actinic keratoses
History of Iron deficiency anemia
History of nephrolithiasis
History of obstructive sleep apnea
Consultations:�
Gastroenterology
Infectious disease
Procedures:�
None
Clinical course:�
This is a 68-year-old male, with past medical history as stated above, who was recently admitted 11/24 - 11/28/23 for fever and was thought due to acute cholecystitis versus duodenitis/duodenal ulcer at that time.
He underwent EGD 11/26 followed by cholangiogram and laparoscopic cholecystectomy that day. He returned to the ER due to fever.
Problem 1:
Fever, unclear etiology.
Infectious workup was unrevealing: COVID/Flu/monospot tests were negative, blood culture negative.
His Procal was noted to be elevated at 1.53.
His CXR noted Mild atelectasis at the right lung base however, the patient denies to any respiratory symptoms.
He received IV ceftriaxone/Flagyl during his hospital stay, and these were transitioned to oral cefdinir and metronidazole for 5 more days following discharge.
Problem 2:
Transaminitis on admission which has improved during his hospital stay.
His CT AP from this admission (11/29/23) was unrevealing: expected postsurgical changes in the gallbladder fossa. No focal collection or abscess. Trace free fluid in the pelvis. No free air.
His AST/ALT down trended from 680/696 on admission to 149/372 on the day of discharge.
He can continue to monitor his LFT outpatient with result to his PCP/GI doctor.
He has been informed to continue hold off his Lipitor.
His hepatitis serology testing was negative last admission.
His DENISE and Liver antibodies were also negative.
His gallbladder/liver path report was still pending, and he can follow this up with his GI outpatient.
As for the rest of his medical problems, they were stable during his hospital stay.
Discharge Plan
-
Patient Disposition: Home (Routine Discharge)
Discharge Diagnosis/Procedures: Fever unclear etiology; elevated liver enzymes (improved)
Condition: Fair
Diet: As tolerated
Activity: As tolerated
Blood Work: LFT within 1 week, result to PCP/GI
Referrals:
Khushi Christensen MD [Family Provider] - in less than 1 week
Additional Discharge Medication Instructions: Hold Lipitor and Tylenol while awaiting repeat LFT result outpatient
Continue antibiotics Cefdinir and Flagyl for 5 more days
Prescriptions:
New
metronidazole 500 mg Tablet
500 mg PO TID 5 Days Qty: 15 0RF
cefdinir 300 mg Capsule
300 mg PO Q12 5 Days Qty: 10 0RF
Continued
hydralazine 25 mg Tablet
25 mg PO TID
amlodipine 10 mg Tablet
10 mg PO DAILY
gabapentin 100 mg Capsule
100 mg PO BID
losartan 100 mg Tablet
100 mg PO DAILY
eplerenone 50 mg Tablet
50 mg PO BID
tadalafil [Cialis] 10 mg Tablet
10 mg PO DAILYPRN PRN (Reason: ED)
pantoprazole [Protonix] 40 mg tablet,delayed release (DR/EC)
40 mg PO BID Qty: 60 0RF
gabapentin 100 mg Capsule
100 mg PO DAILYPRN PRN (Reason: nerve pain)
metformin 500 mg tablet extended release 24 hr
1,000 mg PO BID
Rx Instructions:
on hold until 12/06/23
Held
atorvastatin 20 mg Tablet
20 mg PO DAILY
Hold Instructions: Resume on 12/06/23.
Discharge Orders:
Discharge Patient (As Directed); Ordered 12/02/23
Ordered By: Hayde Whitley
Discharge Date and Time
Discharge Date/Time: 12/02/23 12:31
Print Language: HUNGARIAN
[2023-12-04 01:40] LABS: IgA 57 mg/dl (70-400); IgG 1005 mg/dl (700-1600); IgM 123 mg/dl (40-230)
== END 2023-12-02 12:31 | disposition home or self-care (01) | DRG 864 ==
LOC: 3 WEST ACU 23:54
PROVIDERS: Internal Medicine Gastroenterology; ADMITTING PHYSICIAN Student in an Organized Health Care Education/Training Program; ATTENDING PHYSICIAN Internal Medicine; EMERGENCY PHYSICIAN Emergency Medicine; FAMILY PHYSICIAN Internal Medicine; OTHER PHYSICIAN Internal Medicine Infectious Disease
DX: R50.82 Postprocedural fever (principal); J98.11 Atelectasis; K29.80 Duodenitis without bleeding; E78.00 Pure hypercholesterolemia, unspecified; I10 Essential (primary) hypertension; N40.0 Benign prostatic hyperplasia without lower urinary tract symptoms; R74.8 Abnormal levels of other serum enzymes; R16.2 Hepatomegaly with splenomegaly, not elsewhere classified; R74.01 Elevation of levels of liver transaminase levels; M16.11 Unilateral primary osteoarthritis, right hip; M54.10 Radiculopathy, site unspecified; G47.33 Obstructive sleep apnea (adult) (pediatric); D50.9 Iron deficiency anemia, unspecified; M48.00 Spinal stenosis, site unspecified; N20.0 Calculus of kidney; Z79.84 Long term (current) use of oral hypoglycemic drugs; Z88.0 Allergy status to penicillin; Z87.442 Personal history of urinary calculi; Z11.52 Encounter for screening for COVID-19
CPT/HCPCS: 71046; 74177; 80053; 80143; 81003; 81015; 82248; 82784; 82962; 83036; 83605; 83690; 83735; 84145; 85025; 85027; 85610; 86015; 86038; 86308; 86376; 86381; 86708; 86709; 87040; 87070; 87502; 87811; 96374; 96375; 99285; Q9967

== ENCOUNTER → 2023-12-16 07:59 | Outpatient (REF) | payer OTHER, SELFPAY | LOC: MRI 3T 07:59 | PROVIDERS: ATTENDING PHYSICIAN Internal Medicine | DX: M48.061 Spinal stenosis, lumbar region without neurogenic claudication (principal); R29.898 Other symptoms and signs involving the musculoskeletal system | CPT/HCPCS: 72148 ==

== ENCOUNTER → 2024-01-17 08:35 | Outpatient (REF) | payer OTHER, SELFPAY | LOC: RAD 08:35 | PROVIDERS: ATTENDING PHYSICIAN Internal Medicine | DX: I1A.0 Resistant hypertension (principal) | CPT/HCPCS: 93975 ==

== ENCOUNTER 2024-04-11 06:08 | Day surgery (SDC) | payer OTHER, SELFPAY ==
[2024-04-11 09:27] VITALS: BMI 31.7
[2024-04-11 09:28] VITALS: BMI 31.7
[2024-04-11 09:30] VITALS: BP 165/86
[2024-04-11 11:01] VITALS: BP 119/67
[2024-04-11 11:15] VITALS: BP 147/65
[2024-04-11 11:30] VITALS: BP 136/88
== END 2024-04-11 11:52 | disposition home or self-care (01) ==
LOC: GI 06:08
PROVIDERS: ATTENDING PHYSICIAN Internal Medicine Gastroenterology
DX: K31.7 Polyp of stomach and duodenum (principal); K31.89 Other diseases of stomach and duodenum; Q40.2 Other specified congenital malformations of stomach; K22.82 Esophagogastric junction polyp
CPT/HCPCS: 43251; 43239; 88305